=== PATIENT | female | born 1935 | race Caucasian/White ===

== ENCOUNTER 2016-08-21 11:19 | Emergency (ER) | payer MEDICARE, OTHER ==
[2016-08-21] MEDS ORDERED: METOCLOPRAMIDE 5 MG/ML 2 ML VIAL IVP STA (11:45)
[2016-08-21] MEDS ORDERED: SODIUM CHLORIDE 0.9% 1,000 ML IV STA (11:45)
[2016-08-21] MEDS ORDERED: SODIUM CHLORIDE 0.9% 500 ML IV STA (11:45)
[2016-08-21 11:46] VITALS: RESP 18
[2016-08-21] MEDS ORDERED: ENALAPRILAT 1.25 MG/ML 1 ML VIAL IVP STA (11:47)
[2016-08-21] MEDS ORDERED: ACETAMINOPHEN IV (For NPO) 1,000 MG in SALINE 1 100ML.BAG IVPB STA (11:49)
--- NOTE | 2016-08-21 11:53 | ED ---
General Adult HPI - General Chief complaint: Headache Stated complaint: headache Time Seen by Provider: 08/21/16 11:39 Source: patient, family, RN notes reviewed Mode of arrival: wheelchair Limitations: no limitations - History of Present Illness Initial comments: Patient is a pleasant 81-year-old female presenting to the emergency department complaining of headache. Onset of symptoms was in the middle of the night at some point. Patient did take some aspirin at that time. Patient states headache was gradual onset and progressed over several hours. Headache did become severe up to 10/10. Headache at this time is improved and is rated 6/ 10. Mild nausea. Mild photophobia. No history of chronic headaches. Discomfort felt like tightness wrapping around the head. No confusion. No weakness. No visual change. - Related Data Home Medications Medication Instructions Recorded Confirmed LORazepam [Ativan] 0.5 mg PO BID 01/10/14 08/21/16 Aspirin 325 mg PO DAILY PRN 08/21/16 08/21/16 Carvedilol [Coreg] 3.125 mg PO DAILY 08/21/16 08/21/16 Allergies Allergy/AdvReac Type Severity Reaction Status Date / Time Latex, Natural Rubber Allergy Unknown Verified 08/21/16 11:44 Review of Systems ROS Statement: Those systems with pertinent positive or pertinent negative responses have been documented in the HPI. ROS Other: All systems not noted in ROS Statement are negative. Constitutional: Denies: fever Eyes: Denies: eye pain, vision change ENT: Denies: ear pain Respiratory: Denies: cough Cardiovascular: Denies: chest pain Endocrine: Denies: fatigue Gastrointestinal: Denies: abdominal pain Genitourinary: Denies: dysuria Musculoskeletal: Denies: back pain Skin: Denies: rash Neurological: Reports: headache. Denies: weakness, confusion, vertigo Past Medical History Past Medical History: Hypertension History of Any Multi-Drug Resistant Organisms: None Reported Past Surgical History: Hysterectomy, Tubal Ligation Additional Past Surgical History / Comment(s): UTERINE CYST REMOVAL Past Anesthesia/Blood Transfusion Reactions: No Reported Reaction Past Psychological History: No Psychological Hx Reported Smoking Status: Never smoker Past Alcohol Use History: None Reported Past Drug Use History: None Reported - Past Family History Mother Family Medical History: Diabetes Mellitus General Exam Limitations: no limitations General appearance: alert, in no apparent distress Head exam: Present: atraumatic Eye exam: Present: normal appearance, PERRL, EOMI. Absent: nystagmus ENT exam: Present: normal oropharynx Neck exam: Present: normal inspection. Absent: tenderness Respiratory exam: Present: normal lung sounds bilaterally Cardiovascular Exam: Present: regular rate, normal rhythm GI/Abdominal exam: Present: soft. Absent: tenderness Extremities exam: Present: normal inspection. Absent: pedal edema, calf tenderness Neurological exam: Present: alert, CN II-XII intact. Absent: motor sensory deficit Expanded Speech: Present: fluid speech Cranial nerves: EOM's Intact: Normal, Facial Sensation: Normal Sensory exam: Upper Extremity Light Touch: Normal, Lower Extremity Light Touch: Normal Motor strength exam: RUE: 5, LUE: 5, RLE: 5, LLE: 5 Eye Response: (4) open spontaneously Motor Response: (6) obeys commands Verbal Response: (5) oriented Psychiatric exam: Present: normal affect, normal mood Skin exam: Absent: rash Course Vital Signs 08/21/16 08/21/16 08/21/16 11:21 11:44 13:02 Temperature 97.7 F Pulse Rate 72 72 55 L Respiratory 20 18 18 Rate Blood Pressure 207/93 211/100 188/87 O2 Sat by Pulse 98 95 98 Oximetry Medical Decision Making - Medical Decision Making Patient reexamined and symptom-free. Patient does have some discomfort with cough only. Patient and family updated on results and need for follow-up. Patient is comfortable with discharge home. - Lab Data Lab Results 08/21/16 Range/Units 11:50 ESR 21 H (0-20) mm/hr - Radiology Data Radiology results: image reviewed (Computed tomography scan of the brain shows no acute process) Disposition Clinical Impression: Cephalgia Disposition: HOME SELF-CARE Condition: Stable Instructions: Acute Headache (ED) Additional Instructions: Please follow-up this week with Dr. Ennis. Return for increased pain, weakness or confusion, speech problems, visual problems, worsening symptoms or other concerns. Referrals: Toribio Ennis MD [Primary Care Provider] - 1-2 days
--- NOTE | 2016-08-21 13:14 | CT ---
EXAMINATION TYPE: CT brain wo con DATE OF EXAM: 08/21/2016 1:02 PM COMPARISON: Prior head CT 25 February 2015 HISTORY: RODRIGUEZ CT DLP: 1040 mGycm Automated exposure control for dose reduction was used. FINDINGS: There is no acute intracranial hemorrhage, mass effect, or midline shift identified. The ventricles and sulci are within normal limits in size. Periventricular white matter shows patchy low attenuation as on prior exam. Cerebral vascular calcifications are present. 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 The globes are intact and the visualized sinuses are clear. IMPRESSION: No acute intracranial hemorrhage, mass effect, or midline shift is seen.
[2016-08-21 14:13] VITALS: BP 176/74; PULSE 60; TEMP 98.1
== END 2016-08-21 14:14 | disposition home or self-care (01) ==
LOC: EC 11:19
DX: R51 Headache (principal); R05 Cough; R11.0 Nausea; I10 Essential (primary) hypertension; Z79.899 Other long term (current) drug therapy; Z91.040 Latex allergy status
CPT/HCPCS: 36415; 85652; 70450; 99284; 96374; 96375 ×2; 96361 ×2; J2765; J0131

== ENCOUNTER 2018-01-29 15:26 | Emergency (ER) | payer MEDICARE, OTHER ==
[2018-01-29] MEDS ORDERED: LORazepam 1 MG TAB PO STA ×2 (15:45→18:25)
[2018-01-29] MEDS ORDERED: SODIUM CHLORIDE 0.9% 500 ML IV STA (15:46)
[2018-01-29] MEDS ORDERED: amLODIPine 5 MG TAB PO STA ×2 (15:47→17:55)
--- NOTE | 2018-01-29 15:54 | ED ---
General Adult HPI - General Chief complaint: Dizziness Stated complaint: Irregular Heartbeat Time Seen by Provider: 01/29/18 15:39 Source: patient, family, RN notes reviewed Mode of arrival: ambulatory Limitations: no limitations - History of Present Illness Initial comments: Patient is a pleasant 82-year-old female presenting to the emergency department following an abnormal episode that occurred at home. Patient admits to increasing twice a day and stress recently. Patient states she had a funny wave pass across her forehead. Patient states following this she felt like her heart was racing. He should states the entire episode lasted around 5 seconds. Patient denies ever having headache. Patient states she did not really feel dizzy. Patient denies ever having any chest discomfort. No history of similar symptoms previously. No syncope or Near syncope. No dyspnea. No weakness. No confusion. No speech problems. Patient remained symptom-free at this time. Incident happened several hours ago. - Related Data Home Medications Medication Instructions Recorded Confirmed Aspirin 325 mg PO DAILY PRN 08/21/16 01/29/18 Carvedilol [Coreg] 3.125 mg PO BID 08/21/16 01/29/18 Hydrochlorothiazide 12.5 mg PO DAILY PRN 01/29/18 01/29/18 Allergies Allergy/AdvReac Type Severity Reaction Status Date / Time Latex, Natural Rubber Allergy Unknown Verified 01/29/18 16:08 Review of Systems ROS Statement: Those systems with pertinent positive or pertinent negative responses have been documented in the HPI. ROS Other: All systems not noted in ROS Statement are negative. Constitutional: Denies: fever, chills Eyes: Denies: eye pain ENT: Denies: ear pain Respiratory: Denies: cough, dyspnea Cardiovascular: Reports: palpitations. Denies: chest pain Endocrine: Reports: fatigue Gastrointestinal: Denies: abdominal pain Genitourinary: Denies: dysuria Musculoskeletal: Denies: back pain Skin: Denies: rash Neurological: Denies: headache, weakness, paresthesias, confusion, vertigo Past Medical History Past Medical History: Hypertension History of Any Multi-Drug Resistant Organisms: None Reported Past Surgical History: Hysterectomy, Tubal Ligation Additional Past Surgical History / Comment(s): UTERINE CYST REMOVAL Past Anesthesia/Blood Transfusion Reactions: No Reported Reaction Past Psychological History: No Psychological Hx Reported Smoking Status: Never smoker Past Alcohol Use History: None Reported Past Drug Use History: None Reported - Past Family History Mother Family Medical History: Diabetes Mellitus General Exam Limitations: no limitations General appearance: alert, in no apparent distress Head exam: Present: atraumatic, normocephalic Eye exam: Present: normal appearance, PERRL, EOMI. Absent: nystagmus ENT exam: Present: normal oropharynx Neck exam: Present: normal inspection Respiratory exam: Present: normal lung sounds bilaterally. Absent: chest wall tenderness Cardiovascular Exam: Present: regular rate, normal rhythm Expanded Peripheral pulses: 2+: Radial (R), Radial (L), Dorsalis Pedis (R), Dorsalis Pedis (L) GI/Abdominal exam: Present: soft. Absent: tenderness Extremities exam: Present: normal inspection. Absent: pedal edema, calf tenderness Neurological exam: Present: alert, oriented X3, CN II-XII intact. Absent: motor sensory deficit Expanded Neurological exam: Present: protecting the airway Patient oriented to: Present: person, place, time Speech: Present: fluid speech Cranial nerves: EOM's Intact: Normal, Facial Sensation: Normal Sensory exam: Upper Extremity Light Touch: Normal, Lower Extremity Light Touch: Normal Motor strength exam: RUE: 5, LUE: 5, RLE: 5, LLE: 5 Eye Response: (4) open spontaneously Motor Response: (6) obeys commands Verbal Response: (5) oriented Psychiatric exam: Present: normal affect, normal mood Skin exam: Present: normal color Course Vital Signs 01/29/18 01/29/18 15:29 17:34 Temperature 98.0 F Pulse Rate 71 55 L Respiratory 20 16 Rate Blood Pressure 210/92 204/104 O2 Sat by Pulse 96 95 Oximetry EKG Findings - EKG Comments: EKG Findings:: Normal sinus rhythm 62. First-degree AV block with RI of 206. QRS 90. QT 410. QTc 416. Normal axis. LVH criteria. No acute ST change. Biphasic T waves laterally. Medical Decision Making - Medical Decision Making Patient reevaluated and resting comfortably in bed. Patient does remain symptom -free. Case was discussed with Dr. Ennis who is familiar with this patient and is okay with discharge. He is aware of blood pressure and will follow up with patient. Additional Norvasc is provided. - Lab Data Result diagrams: 01/29/18 16:42 01/29/18 16:42 Lab Results 01/29/18 01/29/18 01/29/18 Range/Units 16:42 16:42 16:42 WBC 7.2 (3.8-10.6) k/uL RBC 3.81 (3.80-5.40) m/uL Hgb 11.8 (11.4-16.0) gm/dL Hct 35.3 (34.0-46.0) % MCV 92.8 (80.0-100.0) fL MCH 30.9 (25.0-35.0) pg MCHC 33.3 (31.0-37.0) g/dL RDW 12.7 (11.5-15.5) % Plt Count 170 (150-450) k/uL Neutrophils % 62 % Lymphocytes % 28 % Monocytes % 6 % Eosinophils % 3 % Basophils % 1 % Neutrophils # 4.5 (1.3-7.7) k/uL Lymphocytes # 2.0 (1.0-4.8) k/uL Monocytes # 0.4 (0-1.0) k/uL Eosinophils # 0.2 (0-0.7) k/uL Basophils # 0.0 (0-0.2) k/uL PT 9.7 (9.0-12.0) sec INR 1.0 (<1.2) APTT 20.3 L (22.0-30.0) sec Sodium 144 (137-145) mmol/L Potassium 4.3 (3.5-5.1) mmol/L Chloride 109 H (98-107) mmol/L Carbon Dioxide 28 (22-30) mmol/L Anion Gap 7 mmol/L BUN 30 H (7-17) mg/dL Creatinine 1.17 H (0.52-1.04) mg/dL Est GFR (CKD-EPI)AfAm 50 (>60 ml/min/1.73 sqM) Est GFR (CKD-EPI)NonAf 44 (>60 ml/min/1.73 sqM) Glucose 119 H (74-99) mg/dL Calcium 9.4 (8.4-10.2) mg/dL Total Bilirubin 0.3 (0.2-1.3) mg/dL AST 18 (14-36) U/L ALT 15 (9-52) U/L Alkaline Phosphatase 63 (38-126) U/L Total Creatine Kinase (30-135) U/L CK-MB (CK-2) (0.0-2.4) ng/mL CK-MB (CK-2) Rel Index Troponin I (0.000-0.034) ng/mL Total Protein 7.2 (6.3-8.2) g/dL Albumin 4.0 (3.5-5.0) g/dL Urine Color Urine Appearance (Clear) Urine pH (5.0-8.0) Ur Specific [place] (1.001-1.035) Urine Protein (Negative) Urine Glucose (UA) (Negative) Urine Ketones (Negative) Urine Blood (Negative) Urine Nitrite (Negative) Urine Bilirubin (Negative) Urine Urobilinogen (<2.0) mg/dL Ur Leukocyte Esterase (Negative) Urine RBC (0-5) /hpf Urine WBC (0-5) /hpf Urine Mucus (None) /hpf 01/29/18 01/29/18 Range/Units 16:42 16:49 WBC (3.8-10.6) k/uL RBC (3.80-5.40) m/uL Hgb (11.4-16.0) gm/dL Hct (34.0-46.0) % MCV (80.0-100.0) fL MCH (25.0-35.0) pg MCHC (31.0-37.0) g/dL RDW (11.5-15.5) % Plt Count (150-450) k/uL Neutrophils % % Lymphocytes % % Monocytes % % Eosinophils % % Basophils % % Neutrophils # (1.3-7.7) k/uL Lymphocytes # (1.0-4.8) k/uL Monocytes # (0-1.0) k/uL Eosinophils # (0-0.7) k/uL Basophils # (0-0.2) k/uL PT (9.0-12.0) sec INR (<1.2) APTT (22.0-30.0) sec Sodium (137-145) mmol/L Potassium (3.5-5.1) mmol/L Chloride (98-107) mmol/L Carbon Dioxide (22-30) mmol/L Anion Gap mmol/L BUN (7-17) mg/dL Creatinine (0.52-1.04) mg/dL Est GFR (CKD-EPI)AfAm (>60 ml/min/1.73 sqM) Est GFR (CKD-EPI)NonAf (>60 ml/min/1.73 sqM) Glucose (74-99) mg/dL Calcium (8.4-10.2) mg/dL Total Bilirubin (0.2-1.3) mg/dL AST (14-36) U/L ALT (9-52) U/L Alkaline Phosphatase (38-126) U/L Total Creatine Kinase 77 (30-135) U/L CK-MB (CK-2) 1.5 (0.0-2.4) ng/mL CK-MB (CK-2) Rel Index 1.9 Troponin I <0.012 (0.000-0.034) ng/mL Total Protein (6.3-8.2) g/dL Albumin (3.5-5.0) g/dL Urine Color Light Yellow Urine Appearance Clear (Clear) Urine pH 6.5 (5.0-8.0) Ur Specific [place] 1.009 (1.001-1.035) Urine Protein Negative (Negative) Urine Glucose (UA) Negative (Negative) Urine Ketones Negative (Negative) Urine Blood Negative (Negative) Urine Nitrite Negative (Negative) Urine Bilirubin Negative (Negative) Urine Urobilinogen <2.0 (<2.0) mg/dL Ur Leukocyte Esterase Moderate H (Negative) Urine RBC 1 (0-5) /hpf Urine WBC 3 (0-5) /hpf Urine Mucus Rare H (None) /hpf - Radiology Data Radiology results: image reviewed (Chest x-ray shows no acute process) Disposition Clinical Impression: Hypertension Disposition: HOME SELF-CARE Condition: Stable Instructions: Dizziness (ED), Hypertension (ED) Additional Instructions: Please follow-up with primary care physician in the next couple days for recheck. Return for passing out, increased heart rate, chest pain, confusion, worsening or changing symptoms or other concerns. Is patient prescribed a controlled substance at d/c from ED?: No Referrals: Toribio Ennis MD [Primary Care Provider] - 1-2 days Time of Disposition: 17:57
[2018-01-29 17:04] LABS: Calcium 9.4 mg/dL (8.4-10.2); Potassium 4.3 mmol/L (3.5-5.1); Total Bilirubin 0.3 mg/dL (0.2-1.3); Total Protein 7.2 g/dL (6.3-8.2)
[2018-01-29 17:06] LABS: Appearance,Urine Clear (Clear); Bilirubin,Urine Negative (Negative); Blood,Urine Negative (Negative); Color,Urine Light Yellow; Glucose,Urine (UA) Negative (Negative); Ketones,Urine Negative (Negative); Leukocyte Esterase,Urine Moderate (Negative); Mucus,Urine Rare /hpf; Nitrite,Urine Negative (Negative); PH, Urine 6.5 (5.0-8.0); Protein,Urine Negative (Negative); RBC,Urine 1 /hpf (0-5); Specific Gravity,Urine 1.009 (1.001-1.035); Urobilinogen,Urine <2.0 mg/dL (<2.0); WBC,Urine 3 /hpf (0-5)
[2018-01-29 17:06] LABS: Creatine Kinase 77 U/L (30-135)
[2018-01-29 17:08] LABS: Basophils % (A) 1 %; Eosinophils # (A) 0.2 k/uL (0-0.7); Eosinophils % (A) 3 %; HCT 35.3 % (34.0-46.0); HGB 11.8 gm/dL (11.4-16.0); Lymphocytes % (A) 28 %; MCH 30.9 pg (25.0-35.0); MCHC 33.3 g/dL (31.0-37.0); MCV 92.8 fL (80.0-100.0); Monocytes # (A) 0.4 k/uL (0-1.0); Monocytes % (A) 6 %; Neutrophils # (A) 4.5 k/uL (1.3-7.7); Neutrophils % (A) 62 %; Platelet Count 170 k/uL (150-450); RBC 3.81 m/uL (3.80-5.40); RDW 12.7 % (11.5-15.5); WBC 7.2 k/uL (3.8-10.6)
[2018-01-29 17:12] LABS: Prothrombin Time 9.7 sec (9.0-12.0)
[2018-01-29 17:19] LABS: Creatine Kinase MB 1.5 ng/mL (0.0-2.4); Partial Thromboplastin Time 20.3 sec (22.0-30.0); Troponin I <0.012 ng/mL (0.000-0.034)
--- NOTE | 2018-01-29 17:35 | XR ---
EXAMINATION TYPE: XR chest 2V DATE OF EXAM: 01/29/2018 COMPARISON: 01/10/2014 HISTORY: Dysrhythmia TECHNIQUE: Frontal and lateral views of the chest are obtained. FINDINGS: Heart and mediastinum are normal. Costophrenic angles are clear. There is no heart failure . There is some pleural thickening at the lung apices. There are chest leads. IMPRESSION: Pleural and pulmonary scarring at the lung apices unchanged. No active cardiopulmonary d isease.
[2018-01-29 19:27] VITALS: RESP 17
[2018-01-29] MEDS ORDERED: cloNIDine HCL 0.1 MG TAB PO STA (19:32)
[2018-01-29 20:38] VITALS: BP 182/82; PULSE 62
[2018-01-29 20:46] VITALS: TEMP 98.3
== END 2018-01-29 20:43 | disposition home or self-care (01) ==
LOC: EC 15:26
DX: I10 Essential (primary) hypertension (principal); Z91.040 Latex allergy status; Z79.899 Other long term (current) drug therapy
CPT/HCPCS: 36415; 71046; 80053; 81001; 82550; 82553; 84484; 85025; 85610; 85730; 93005; 96360; 99284

== ENCOUNTER 2018-05-10 09:11 | Inpatient (IN) | payer MEDICARE, OTHER ==
[2018-05-10 09:59] LABS: Basophils % (A) 1 %; Eosinophils # (A) 0.2 k/uL (0-0.7); Eosinophils % (A) 4 %; HCT 34.4 % (34.0-46.0); HGB 11.2 gm/dL (11.4-16.0); Lymphocytes # (A) 1.4 k/uL (1.0-4.8); Lymphocytes % (A) 28 %; MCH 30.7 pg (25.0-35.0); MCHC 32.4 g/dL (31.0-37.0); MCV 94.7 fL (80.0-100.0); Mean Platelet Volume 7.1; Monocytes # (A) 0.2 k/uL (0-1.0); Monocytes % (A) 5 %; Neutrophils % (A) 60 %; Platelet Count 169 k/uL (150-450); RBC 3.63 m/uL (3.80-5.40); RDW 12.9 % (11.5-15.5)
[2018-05-10 10:09] LABS: Albumin 3.5 g/dL (3.5-5.0); Potassium 4.5 mmol/L (3.5-5.1); Total Bilirubin 0.4 mg/dL (0.2-1.3); Total Protein 6.3 g/dL (6.3-8.2)
[2018-05-10 10:10] LABS: INR 0.9 (<1.2); Partial Thromboplastin Time 23.2 sec (22.0-30.0)
--- NOTE | 2018-05-10 10:12 | ED ---
General Adult HPI - General Chief complaint: Neuro Symptoms/Deficit Stated complaint: Neuro Symptoms Time Seen by Provider: 05/10/18 09:15 Source: patient, RN notes reviewed, old records reviewed Mode of arrival: EMS Limitations: no limitations - History of Present Illness Initial comments: 82-year-old female history of hypertension presents with tongue numbness and left arm numbness and weakness. Symptoms began at 8:30 this morning. She presents to emergency department at approximately 1915. She was transported by EMS. Symptoms had resolved at the time of presentation. Patient had no complaints. No significant headache, no vision changes, no focal numbness or weakness. Patient states she feels somewhat generally weak. No chest pain or dyspnea. No palpitations. No abdominal pain nausea or vomiting. No fever or chills. Patient did take an aspirin prior to arrival. She has no history of TIA or CVA. No history of arrhythmia. No history of CAD or CO. - Related Data Home Medications Medication Instructions Recorded Confirmed Carvedilol [Coreg] 3.125 mg PO BID 08/21/16 05/10/18 Vitamin B Complex 1 cap PO DAILY 05/10/18 05/10/18 Allergies Allergy/AdvReac Type Severity Reaction Status Date / Time Latex, Natural Rubber Allergy Unknown Verified 05/10/18 10:06 Review of Systems ROS Statement: Those systems with pertinent positive or pertinent negative responses have been documented in the HPI. ROS Other: All systems not noted in ROS Statement are negative. Past Medical History Past Medical History: Hypertension History of Any Multi-Drug Resistant Organisms: None Reported Past Surgical History: Hysterectomy, Tubal Ligation Additional Past Surgical History / Comment(s): UTERINE CYST REMOVAL Past Anesthesia/Blood Transfusion Reactions: No Reported Reaction Past Psychological History: No Psychological Hx Reported Smoking Status: Never smoker Past Alcohol Use History: None Reported Past Drug Use History: None Reported - Past Family History Mother Family Medical History: Diabetes Mellitus General Exam Limitations: no limitations General appearance: alert, in no apparent distress Head exam: Present: atraumatic, normocephalic Eye exam: Present: normal appearance, PERRL, EOMI ENT exam: Present: normal exam Neck exam: Present: normal inspection. Absent: tenderness, meningismus Respiratory exam: Present: normal lung sounds bilaterally. Absent: respiratory distress, wheezes Cardiovascular Exam: Present: normal rhythm, bradycardia GI/Abdominal exam: Present: soft. Absent: distended Extremities exam: Present: normal inspection, normal capillary refill. Absent: pedal edema, calf tenderness Neurological exam: Present: alert, oriented X3, CN II-XII intact, other (NIH 0) . Absent: motor sensory deficit Psychiatric exam: Present: normal affect, normal mood Skin exam: Present: warm, dry, intact. Absent: cyanosis, diaphoretic Course Vital Signs 05/10/18 05/10/18 09:40 12:05 Temperature 98.1 F Pulse Rate 57 L 52 L Respiratory 18 16 Rate Blood Pressure 217/91 182/85 O2 Sat by Pulse 98 98 Oximetry Medical Decision Making - Medical Decision Making 82-year-old female presenting with symptoms concerning for TIA. Patient had left arm numbness and mild weakness this was resolved prior to arrival. Patient is neurologically intact time my evaluation. She is hypertensive with otherwise stable vitals and well-appearing. Head CT is obtained, negative for intracranial hemorrhage or mass effect. Patient does receive CT angiography in the emergency department which is negative for any stenosis or occlusion. 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 No acute findings. Patient has normal CBC and normal CMP. She remains neurologically intact with nonfocal exam and NIH is 0 out of the emergency department. She took aspirin prior to arrival. She will be admitted for further stroke workup. Case is discussed with Dr. Ennis who is able to evaluate the patient in the emergency department. - Lab Data Result diagrams: 05/10/18 09:50 05/10/18 09:50 Lab Results 05/10/18 05/10/18 05/10/18 Range/Units 09:50 09:50 09:50 WBC 5.0 (3.8-10.6) k/uL RBC 3.63 L (3.80-5.40) m/uL Hgb 11.2 L (11.4-16.0) gm/dL Hct 34.4 (34.0-46.0) % MCV 94.7 (80.0-100.0) fL MCH 30.7 (25.0-35.0) pg MCHC 32.4 (31.0-37.0) g/dL RDW 12.9 (11.5-15.5) % Plt Count 169 (150-450) k/uL Neutrophils % 60 % Lymphocytes % 28 % Monocytes % 5 % Eosinophils % 4 % Basophils % 1 % Neutrophils # 3.0 (1.3-7.7) k/uL Lymphocytes # 1.4 (1.0-4.8) k/uL Monocytes # 0.2 (0-1.0) k/uL Eosinophils # 0.2 (0-0.7) k/uL Basophils # 0.0 (0-0.2) k/uL PT (9.0-12.0) sec INR (<1.2) APTT (22.0-30.0) sec Sodium 141 (137-145) mmol/L Potassium 4.5 (3.5-5.1) mmol/L Chloride 108 H (98-107) mmol/L Carbon Dioxide 28 (22-30) mmol/L Anion Gap 5 mmol/L BUN 16 (7-17) mg/dL Creatinine 0.96 (0.52-1.04) mg/dL Est GFR (CKD-EPI)AfAm 64 (>60 ml/min/1.73 sqM) Est GFR (CKD-EPI)NonAf 55 (>60 ml/min/1.73 sqM) Glucose 129 H (74-99) mg/dL Calcium 9.0 (8.4-10.2) mg/dL Total Bilirubin 0.4 (0.2-1.3) mg/dL AST 14 (14-36) U/L ALT 18 (9-52) U/L Alkaline Phosphatase 62 (38-126) U/L Total Creatine Kinase 74 (30-135) U/L CK-MB (CK-2) 1.0 (0.0-2.4) ng/mL CK-MB (CK-2) Rel Index 1.4 Troponin I <0.012 (0.000-0.034) ng/mL Total Protein 6.3 (6.3-8.2) g/dL Albumin 3.5 (3.5-5.0) g/dL 05/10/18 Range/Units 09:50 WBC (3.8-10.6) k/uL RBC (3.80-5.40) m/uL Hgb (11.4-16.0) gm/dL Hct (34.0-46.0) % MCV (80.0-100.0) fL MCH (25.0-35.0) pg MCHC (31.0-37.0) g/dL RDW (11.5-15.5) % Plt Count (150-450) k/uL Neutrophils % % Lymphocytes % % Monocytes % % Eosinophils % % Basophils % % Neutrophils # (1.3-7.7) k/uL Lymphocytes # (1.0-4.8) k/uL Monocytes # (0-1.0) k/uL Eosinophils # (0-0.7) k/uL Basophils # (0-0.2) k/uL PT 10.0 (9.0-12.0) sec INR 0.9 (<1.2) APTT 23.2 (22.0-30.0) sec Sodium (137-145) mmol/L Potassium (3.5-5.1) mmol/L Chloride (98-107) mmol/L Carbon Dioxide (22-30) mmol/L Anion Gap mmol/L BUN (7-17) mg/dL Creatinine (0.52-1.04) mg/dL Est GFR (CKD-EPI)AfAm (>60 ml/min/1.73 sqM) Est GFR (CKD-EPI)NonAf (>60 ml/min/1.73 sqM) Glucose (74-99) mg/dL Calcium (8.4-10.2) mg/dL Total Bilirubin (0.2-1.3) mg/dL AST (14-36) U/L ALT (9-52) U/L Alkaline Phosphatase (38-126) U/L Total Creatine Kinase (30-135) U/L CK-MB (CK-2) (0.0-2.4) ng/mL CK-MB (CK-2) Rel Index Troponin I (0.000-0.034) ng/mL Total Protein (6.3-8.2) g/dL Albumin (3.5-5.0) g/dL Disposition Clinical Impression: Transient cerebral ischemia Disposition: ADMITTED IP TO THIS [facility] Condition: Stable Is patient prescribed a controlled substance at d/c from ED?: No Referrals: Toribio Ennis MD [Primary Care Provider] - 1-2 days Decision to Admit Reason: Admit from EC Decision Date: 05/10/18 Decision Time: 12:37
[2018-05-10 10:23] LABS: Creatine Kinase 74 U/L (30-135)
[2018-05-10 10:36] LABS: Troponin I <0.012 ng/mL (0.000-0.034)
--- NOTE | 2018-05-10 10:58 | CT ---
EXAMINATION TYPE: CT brain wo con DATE OF EXAM: 05/10/2018 COMPARISON: Previous study dated 08/21/2016 HISTORY: Neuro deficits CT DLP: 1095.4 mGycm Automated exposure control for dose reduction was used. FINDINGS: There are mild changes of sulcal prominence and ventriculomegaly, compatible with atrophic change. Th ere is diffuse periventricular white matter lucency, compatible small vessel ischemic change. There i s no acute focal lesion, mass effect or midline shift identified. I do not see evidence of intracrani al blood. Visualized portions of the paranasal sinuses and mastoids are clear. The bony calvarium is intact. IMPRESSION: 1. NO ACUTE INTRACRANIAL ABNORMALITY. 2. MILD DEGENERATIVE CHANGE.
--- NOTE | 2018-05-10 10:59 | XR ---
EXAMINATION TYPE: XR chest 2V DATE OF EXAM: 05/10/2018 HISTORY: altered mental status. REFERENCE: Previous study dated 01/29/2018. FINDINGS: The lungs are clear. Pleural space are clear. Heart size is upper limits of normal. IMPRESSION: NO ACUTE INTRATHORACIC ABNORMALITY.
[2018-05-10] MEDS ORDERED: hydrALAZINE HCL 20 MG/ML 1 ML VIAL IVP STA (11:31)
--- NOTE | 2018-05-10 12:21 | CT ---
EXAMINATION TYPE: CT angio head neck DATE OF EXAM: 05/10/2018 HISTORY: Numbness in tongue and arms COMPARISON: None. CT DLP: 292.1 mGycm. Automated Exposure Control for Dose Reduction was Utilized. TECHNIQUE: CTA scan of the neck is performed with IV Contrast, patient injected with 65 mL of Isovue 370, axial images are obtained, coronal and sagittal reformatted images are reviewed. Three-D recons tructed images are created on an independent workstation and reviewed. FINDINGS: There is apical scarring present bilaterally. There is dependent atelectasis within the fercho gs. There is aneurysmal dilatation of the proximal aortic arch which measures 3.2 cm. The remainder the v isualized aorta is unremarkable. There is a grade 1 spondylolisthesis of C4 on C5. Vertebral body hei ght and alignment are otherwise maintained. There is diffuse degenerative disc disease with relative sparing of C2-3. Atlantoaxial relationships are normal. No definite protrusion is seen. There is face t arthropathy on the right at C2-3 and on the left at C3-4. Visualized portions of the paranasal sinuses and mastoids are clear. The thyroid gland enhances homogeneously. Prevertebral soft tissues appear normal. There is a normal origin of the great vessels. The right vertebral artery is dominant. There is mild atheromatous calcification at the right carotid bulb. There is no significant stenosis in either carotid system. CTA of [place] demonstrates normal arborization of both middle cerebral arteries. Both a nterior cerebral arteries are patent. The posterior circulation is unremarkable. I see no sizable ane urysm. IMPRESSION: 1. NO SIGNIFICANT STENOSIS IN EITHER CAROTID SYSTEM. 2. NORMAL CTA OF THE [place]. 3. DEGENERATIVE CHANGES WITHIN THE SPINE. 4. 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
[2018-05-10] MEDS ORDERED: amLODIPine 5 MG TAB PO STA (13:37)
[2018-05-10 14:10] VITALS: BMI 21.7
--- NOTE | 2018-05-10 15:38 | US ---
EXAMINATION TYPE: US carotid duplex BILAT DATE OF EXAM: 05/10/2018 COMPARISON: CT 2018, US 2013 CLINICAL HISTORY: Numbness. EXAM MEASUREMENTS: RIGHT: Peak Systolic Velocity (PSV) cm/sec ----- Right CCA: 51.1 ----- Right ICA: 90.2 ----- Right ECA: 79.1 ICA/CCA ratio: 1.8 RIGHT: End Diastole cm/sec ----- Right CCA: 11.0 ----- Right ICA: 16.7 ----- Right ECA: 5.6 LEFT: Peak Systolic Velocity (PSV) cm/sec ----- Left CCA: 68.6 ----- Left ICA: 124.0 ----- Left ECA: 64.2 ICA/CCA ratio: 1.8 LEFT: End Diastole cm/sec ----- Left CCA: 18.0 ----- Left ICA: 35.0 ----- Left ECA: 5.7 VERTEBRALS (direction of flow): Right Vertebral: Antegrade Left Vertebral: Antegrade Rhythm: Normal IMPRESSION: No hemodynamically significant bilateral carotid arterial narrowing.
[2018-05-10] MEDS ORDERED: hydrALAZINE HCL 25 MG TAB PO STA (17:01)
[2018-05-10] MEDS ORDERED: CARVEDILOL 6.25 MG TAB PO SCH (17:30)
--- NOTE | 2018-05-10 17:42 | HP ---
HISTORY AND PHYSICAL DATE OF ADMISSION: 05/10/2018 CHIEF COMPLAINT: Numbness of tongue. HISTORY OF PRESENT ILLNESS: This elderly female, 82 years of age, presents with a complaint of having the tip of her tongue feeling numb and then subsequently has started having numbness of her medial 3 fingers on the left hand and then extending up to the hand and lower arm. The patient had no motor symptoms, no associated headaches, dizziness, double vision, blurred vision, any speech disturbance or any unsteadiness. The patient's symptoms had lasted about half an hour when she decided to come to the emergency room. She has no further symptoms in the ER. The patient says she got up this morning, watched some TV and then had breakfast, went out and shoveled a little snow around the front porch. Then when she came in, after a while she started having these symptoms. She sat around for a little while, then decided to take an aspirin, as she started having some symptoms in the hands. She took an aspirin and had taken her blood pressure medication earlier. She takes carvedilol 6.25 mg b.i.d. She is supposed to be on hydrochlorothiazide 12.5 daily; she does not take it on a regular basis. She elects to take it upon her judgments. The patient has been recommended to take it on a daily basis to help blood pressure. As mentioned above, the patient had no other associated symptoms. She does have a history of hypertension. No history of any lung disease or liver disease. No history of any cardiac disease. PAST MEDICAL HISTORY: Significant for: 1. History of hypertension, long-standing. 2. History of a TIA back in 2013. 3. Back in January of 2018 she had come to the emergency room for symptoms of tunnel vision. Again findings at that time were clinically none. PAST SURGICAL HISTORY: No major surgical history. PERSONAL HISTORY: Never a smoker. Alcohol none. ALLERGIES: Sensitive to [employer], which cause her a cough. LATEX sensitive. MEDICATIONS: Medications at present include: 1. Coreg 3.125 mg 2 tablets b.i.d. 2. Ativan p.r.n. 3. Hydrochlorothiazide 12.5 mg daily. 4. Aspirin 81 mg daily. She does not take her aspirin and hydrochlorothiazide on a regular basis. SOCIAL HISTORY: Patient is , lives with her spouse. The patient's spouse has a history of multiple medical ailments. The patient has a son who lives with her. He has residual left hemiparesis from childhood. FAMILY MEDICAL HISTORY: As mentioned above, son with left hemiparesis. She has 2 daughters in good health. She had one son who at the age of 40 with myocardial infarction. REVIEW OF SYSTEMS: NEURO: Denies any headaches, dizziness. No double vision or blurred vision. No symptoms of syncope, seizures. Present symptoms of numbness at the tip of the tongue and left hand, which are resolved. No motor symptoms. PSYCH: No anxiety, depression. CARDIAC: No chest pain, angina, palpitation. RESPIRATORY: Denies shortness of breath, cough, hemoptysis. GI: No nausea, vomiting, abdominal pain, diarrhea, constipation, hematochezia, melena. : Denies symptoms of dysuria, hematuria, urgency, frequency. EXTREMITIES: Denies pain, edema. Does have muscle cramps. CONSTITUTIONAL: No fever or chills. HEMATOLOGICAL: No anemia or bleeding disorder. ENDOCRINE: No history of diabetes mellitus, hypothyroidism. SKIN: No rashes. 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 PHYSICAL EXAMINATION: Pleasant female, at present in no distress. She is awake, alert, calm. Vital signs revealed blood pressures running in the 219/90 range, pulse 50, respirations of 16, afebrile. HEENT: Normocephalic. Neck is supple. Pupils reactive. Nostrils clear. Oral cavity is moist. Pharynx is clear. Tongue central. Ears reveal no drainage. NECK: No JVD, carotid bruits or thyromegaly. Chest examination is clear to auscultation and percussion CARDIAC: Normal S1, S2 with no gallops, murmurs or rubs. Regular rhythm. ABDOMEN: Soft. No palpable masses. Bowel sounds normal. No organomegaly. No abdominal bruits. Extremities reveal no edema. Good pulses, both upper and lower extremities. Neurologically, awake, alert, oriented x3. Cranial nerves 2-12 are within normal limits. Has equal hand grasp bilaterally. No focal neurological sign. She has equal strength in both lower extremities. Plantars are bilateral, equivocal. Deep tendon reflexes are symmetrical. Gait is not examined. However, patient has well-coordinated movements of both hands. LABORATORY ASSESSMENT: CT scan of the brain which did not reveal any acute infarcts or bleed. CTA did not reveal any intracranial circulatory significant changes or infarcts. There is some dilatation of the aortic arch. EKG reveals normal sinus rhythm, possible LV changes. Electrolytes, BUN and creatinine are within normal limits. ASSESSMENT: 1. Transient ischemic attack. 2. Labile hypertension. PLAN: The patient is admitted to the hospital, started on aspirin. She was given hydralazine in the emergency room. We will start the patient on Norvasc. Continue Coreg and hydrochlorothiazide. The patient's condition was discussed with the patient and spouse. Prognosis remains guarded. Will get an ultrasound of the carotid arteries. She may require further evaluation regarding the aorta. MMODL / IJN: [id number] /
[2018-05-10 20:04] LABS: Glucose,Whole Blood 124 mg/dL (75-99)
[2018-05-10] MEDS: IBUPROFEN 400 MG TAB PO PRN (20:34)
--- NOTE | 2018-05-10 22:48 | P.PN ---
Subjective Progress Note Date: 05/10/18 Principal diagnosis: TIA This 82-year-old female was admitted to the hospital this morning with symptoms suggestive of a TIA. She had no focal neurological signs. EKG had shown sinus bradycardia with rates of 50s. Blood pressure markedly elevated and 200s. The patient during the day time had received 10 mg of hydralazine this morning and subsequently Norvasc 5 mg and since the blood pressure still in the 190s had received a dose of hydralazine. This evening and about 2 shifts change 7:38 PM the oncoming nurse had just evaluated her when she was fine and a few minutes later they noted the patient suddenly became almost unresponsive and bradycardic with rate of 30-32 and on telemetry noted to have a junctional bradycardia and subsequently picked up to sinus bradycardia. The patient's blood pressure was recorded as 106/55 as her heart rate came up to 69. The pulse ox was 95%. I's up to see the patient as she is awake alert oriented 3 she has no focal neurological signs or symptoms she is not complaining of any particular chest pain palpitations shortness of breath. She does have a neck pain in the back which is worsening with movements. She has had this pain for more than a month. 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 Physical examination reveals stable vital signs at present, lungs clear to auscultation percussion cardiac normal S1-S2 no gallops murmurs abdomen is softer peripheral masses pulses normal no organomegaly no tenderness extremities no edema no tenderness skin nice and warm. Neurologically no focal cranial nerve deficit equal strength bilaterally plantars are downgoing bilaterally. Assessment 1. Syncope 2. Severe bradycardia 3. Junctional bradycardia 4. TIA 5. Hypertension. Plan continue present medical management. We'll obtain an echocardiogram thyroid function the morning have cardiology see the patient. Objective - Vital Signs Vital signs: Vital Signs Temp 97.2 F L 05/10/18 20:00 Pulse 69 05/10/18 20:00 Resp 18 05/10/18 20:00 BP 106/55 05/10/18 20:00 Pulse Ox 95 05/10/18 20:00 Intake & Output 05/10/18 05/10/18 05/11/18 06:59 18:59 06:59 Intake Total 236 10 Balance 236 10 Weight 54 kg Intake: IV 10 0.9% NS FLUSH 10 Oral 236 - Labs CBC & Chem 7: 05/10/18 09:50 05/10/18 09:50 Labs: Abnormal Lab Results - Last 24 Hours (Table) 05/10/18 05/10/18 05/10/18 Range/Units 09:50 09:50 19:43 RBC 3.63 L (3.80-5.40) m/uL Hgb 11.2 L (11.4-16.0) gm/dL Chloride 108 H (98-107) mmol/L Glucose 129 H (74-99) mg/dL POC Glucose (mg/dL) 124 H (75-99) mg/dL
[2018-05-11 07:10] LABS: HCT 36.5 % (34.0-46.0); MCH 31.3 pg (25.0-35.0); MCHC 32.9 g/dL (31.0-37.0); MCV 95.2 fL (80.0-100.0); Mean Platelet Volume 7.8; Platelet Count 173 k/uL (150-450); RBC 3.84 m/uL (3.80-5.40); RDW 13.1 % (11.5-15.5); WBC 6.1 k/uL (3.8-10.6)
[2018-05-11 07:26] LABS: Calcium 9.5 mg/dL (8.4-10.2); Potassium 4.2 mmol/L (3.5-5.1)
[2018-05-11] MEDS: ASPIRIN 325 MG TAB PO SCH (08:28)
[2018-05-11] MEDS: IBUPROFEN 400 MG TAB PO PRN ×2 (08:28→18:16)
[2018-05-11] MEDS ORDERED: hydrALAZINE HCL 10 MG TAB PO SCH (10:45)
--- NOTE | 2018-05-11 11:14 | P.PN ---
Subjective Progress Note Date: 05/11/18 Principal diagnosis: TIA This 82-year-old female was admitted to the hospital with symptoms suggestive of a TIA. A CAT scan of the brain, CTA, carotid duplex studies were all negative. The patient did have an episode of severe bradycardia while on telemetry. No cardiopulmonary resuscitation was done though code blue was called. Patient has been on coreg at home. This was discontinued. We will start her on hydralazine to help control blood pressure. Since her blood pressures better control we'll also place her on subcu heparin for DVT prophylaxis. Patient should be ambulating. She has no symptoms today. She denies any headaches TIA symptoms equal hand grasp bilaterally and feet. Gait is steady. REVIEW OF SYSTEMS: Neuro: Denies any headaches dizziness. Psych: Denies anxiety depression feels oriented. Cardiac: Denies chest pain and angina palpitations. Respiratory: Denies shortness of breath cough. GI: Denies nausea vomiting or abdominal pain. No diarrhea or constipation, no bowel movement yet. : Denies dysuria hematuria. Extremities: Denies pain. No edema. Skin: Intact. Constitutional: No fever, chills. Neck: Chronic pain with no radicular symptoms Objective - Vital Signs Vital signs: Vital Signs Temp 98 F 05/11/18 08:00 Pulse 60 05/11/18 08:00 Resp 16 05/11/18 08:00 BP 134/63 05/11/18 08:00 Pulse Ox 96 05/11/18 08:00 Intake & Output 05/10/18 05/11/18 05/11/18 18:59 06:59 18:59 Intake Total 236 20 Balance 236 20 Weight 54 kg 45 kg Intake: IV 20 0.9% NS FLUSH 20 Oral 236 PHYSICAL EXAMINATION: Cooperative, at present in no acute distress. HEENT: [Neck supple. No JVD.] Chest: [Clear to auscultation][ percussion.] Cardiac: [Normal S1-S2] [no gallops] [no murmur ]. Abdomen:[ Soft ][bowel sounds present.] Extremities: [No edema] [no tenderness ] Neurologically: [Awake, alert, oriented with well-coordinated movements. Equal strength bilaterally no facial asymmetry and normal ocular movements. No dysphagia. Gait is steady] - Labs CBC & Chem 7: 05/11/18 06:37 05/11/18 06:37 Labs: Abnormal Lab Results - Last 24 Hours (Table) 05/10/18 05/11/18 Range/Units 19:43 06:37 Chloride 108 H (98-107) mmol/L BUN 21 H (7-17) mg/dL POC Glucose (mg/dL) 124 H (75-99) mg/dL LDL Cholesterol, Calc 110 H (0-99) mg/dL Assessment and Plan Assessment: ASSESSMENT: 1. TIA. 2. Symptomatic bradycardia. 3. Accelerated hypertension. PLAN: Continue present medical regimen. Patient's coreg has been discontinued we'll keep her on hydralazine.. Cardiology to evaluate. TIA symptoms are resolved yesterday no recurrence. The patient ambulated...
--- NOTE | 2018-05-11 12:20 | P.CRDCN ---
History of Present Illness Consult date: 05/11/18 History of present illness: This is a pleasant 80-year-old female patient with a past medical history significant for hypertension as well as history of TIA was admitted to the hospital with symptoms suggestive of TIA again. The patient was in her usual state of health until a few days ago when she suddenly started experiencing numbness involving the right side of the tongue as well as left arm. Her symptoms has resolved completely. The patient was diagnosed was TIA. She underwent a brain computed tomography scan, CTA, and also carotid to plexus study, and everything came in to be unremarkable. We get involved in the care of the patient because during her hospitalization she did have an episode of bradycardia. I did a few the telemetry strip which indicate likely what it seems to be profound bradycardia with heart rate in the 30s. The patient was unresponsive during that episode. Please note that the patient was receiving Coreg and that was stopped earlier today. Currently she is not on any AV opal adriane agents to control her blood pressure. The patient does not have any prior cardiac history and never seen any cold roller in the past. Past Medical History Past Medical History: Hypertension History of Any Multi-Drug Resistant Organisms: None Reported Past Surgical History: Hysterectomy, Tubal Ligation Additional Past Surgical History / Comment(s): UTERINE CYST REMOVAL Past Anesthesia/Blood Transfusion Reactions: No Reported Reaction Past Psychological History: No Psychological Hx Reported Smoking Status: Never smoker Past Alcohol Use History: None Reported Past Drug Use History: None Reported - Past Family History Mother Family Medical History: Diabetes Mellitus Medications and Allergies Home Medications Medication Instructions Recorded Confirmed Type Carvedilol [Coreg] 3.125 mg PO BID 08/21/16 05/10/18 History Vitamin B Complex 1 cap PO DAILY 05/10/18 05/10/18 History Allergies Allergy/AdvReac Type Severity Reaction Status Date / Time Latex, Natural Rubber Allergy Unknown Verified 05/10/18 10:06 Physical Exam Vitals: Vital Signs Temp Pulse Pulse Resp BP BP BP 05/11/18 08:00 98 F 60 16 134/63 05/11/18 03:50 97.6 F 58 L 16 174/86 185/91 05/11/18 01:36 57 L 16 166/76 173/82 05/10/18 23:43 97.9 F 69 14 170/78 191/93 05/10/18 20:00 97.2 F L 69 18 106/55 05/10/18 19:40 30 L 6 L 05/10/18 18:41 136/67 05/10/18 15:34 97.1 F L 71 18 189/82 05/10/18 14:00 97.1 F L 61 18 209/98 05/10/18 13:25 98.7 F 63 18 194/91 Pulse Ox 05/11/18 08:00 96 05/11/18 03:50 98 05/11/18 01:36 05/10/18 23:43 96 05/10/18 20:00 95 05/10/18 19:40 05/10/18 18:41 05/10/18 15:34 96 05/10/18 14:00 97 05/10/18 13:25 98 Intake and Output 05/10/18 05/11/18 05/11/18 22:59 06:59 14:59 Intake Total 10 10 Balance 10 10 Intake: IV 10 10 0.9% NS FLUSH 10 10 Other: Weight 45 kg - Constitutional General appearance: no acute distress - Respiratory Respiratory: bilateral: CTA - Cardiovascular Rhythm: regular Heart sounds: normal: S1, S2 Results 05/11/18 06:37 05/11/18 06:37 Lipids 05/11/18 Range/Units 06:37 Triglycerides 52 (<150) mg/dL Cholesterol 176 (<200) mg/dL HDL Cholesterol 56 (40-60) mg/dL CBC 05/11/18 Range/Units 06:37 WBC 6.1 (3.8-10.6) k/uL RBC 3.84 (3.80-5.40) m/uL Hgb 12.0 (11.4-16.0) gm/dL Hct 36.5 (34.0-46.0) % Plt Count 173 (150-450) k/uL Comprehensive Metabolic Panel 05/11/18 Range/Units 06:37 Sodium 143 (137-145) mmol/L Potassium 4.2 (3.5-5.1) mmol/L Chloride 108 H (98-107) mmol/L Carbon Dioxide 30 (22-30) mmol/L BUN 21 H (7-17) mg/dL Creatinine 1.00 (0.52-1.04) mg/dL Glucose 87 (74-99) mg/dL Calcium 9.5 (8.4-10.2) mg/dL Current Medications Generic Name Dose Route Start Last Admin Trade Name Freq PRN Reason Stop Dose Admin Aspirin 325 mg 05/11/18 09:00 05/11/18 08:28 Aspirin PO 325 mg DAILY GER Administration Heparin Sodium (Porcine) 5,000 unit 05/11/18 21:00 Heparin SQ Q12HR GER Hydralazine HCl 10 mg 05/11/18 10:45 05/11/18 11:53 Apresoline PO 10 mg BID GER Administration Ibuprofen 400 mg 05/10/18 20:04 05/11/18 08:28 Motrin PO 400 mg Q4HR PRN Administration Mild to Moderate Pain Intake and Output 05/10/18 05/11/18 05/11/18 22:59 06:59 14:59 Intake Total 10 10 Balance 10 10 Intake: IV 10 10 0.9% NS FLUSH 10 10 Other: Weight 45 kg 05/11/18 06:37 05/11/18 06:37 Assessment and Plan Assessment: Assessment #1 an episode of TIA which has resolved #2 profound bradycardia, sinus bradycardia #3 hypertension, long-standing history #4 history of recurrent TIA Plan #1 the Coreg was stopped. #2 avoid any AV opal adriane agents #3 rule out thyroid disorder #4 monitor the heart rate for additional 24 hours #5 obtain an echocardiogram was Doppler #6 follow up with the patient
[2018-05-11] MEDS ORDERED: hydrALAZINE HCL 25 MG TAB PO STA (18:30)
[2018-05-11] MEDS ORDERED: HYDROCHLOROTHIAZIDE 12.5 MG CAP PO SCH (20:45)
[2018-05-11] MEDS ORDERED: hydrALAZINE HCL 25 MG TAB PO SCH (21:00)
[2018-05-11] MEDS: HEPARIN SODIUM,PORCINE 5,000 UNIT/ML 1 ML VIAL SQ SCH (22:00)
[2018-05-12] MEDS: HEPARIN SODIUM,PORCINE 5,000 UNIT/ML 1 ML VIAL SQ SCH ×2 (08:32→19:37)
[2018-05-12] MEDS: ASPIRIN 325 MG TAB PO SCH (08:32)
[2018-05-12] MEDS ORDERED: hydrALAZINE HCL 50 MG TAB PO SCH (09:00)
[2018-05-12] MEDS ORDERED: HYDROCHLOROTHIAZIDE 12.5 MG CAP PO SCH (09:00)
[2018-05-12] MEDS: amLODIPine 10 MG TAB PO SCH (11:53)
--- NOTE | 2018-05-12 12:04 | P.PN ---
Subjective Progress Note Date: 05/12/18 Principal diagnosis: Symptomatic bradycardia This is a pleasant 80-year-old female patient with a past medical history significant for hypertension as well as history of TIA was admitted to the hospital with symptoms suggestive of TIA again. The patient was in her usual state of health until a few days ago when she suddenly started experiencing numbness involving the right side of the tongue as well as left arm. Her symptoms has resolved completely. The patient was diagnosed was TIA. She underwent a brain computed tomography scan, CTA, and also carotid to plexus study, and everything came in to be unremarkable. We get involved in the care of the patient because during her hospitalization she did have an episode of bradycardia. I did a few the telemetry strip which indicate likely what it seems to be profound bradycardia with heart rate in the 30s. The patient was unresponsive during that episode. Please note that the patient was receiving Coreg and that was stopped earlier today. Currently she is not on any AV opal adriane agents to control her blood pressure. On follow-up with the patient today, May 122018, she continues to be asymptomatic from the cardiovascular standpoint overview. No more episodes of bradycardia since the Coreg was stopped. The blood pressure continues to be not well-controlled on the current medical regimen. She was started on hydrochlorothiazide but she developed a rash to it. I am going to increase the dose of hydralazine to 75 mg by mouth 3 times a day. Objective - Vital Signs Vital signs: Vital Signs Temp 96.7 F L 05/12/18 08:35 Pulse 65 05/12/18 10:30 Resp 16 05/12/18 08:35 BP 197/94 05/12/18 10:57 Pulse Ox 98 05/12/18 08:35 Intake & Output 05/11/18 05/12/18 05/12/18 18:59 06:59 18:59 Intake Total 20 180 Output Total 0 Balance 20 180 Weight 58.3 kg Intake: IV 20 0.9% NS FLUSH 20 Oral 180 Output: Urine 0 Other: Voiding Method Toilet # Voids 4 1 - Constitutional General appearance: Present: no acute distress - Respiratory Respiratory: bilateral: CTA - Cardiovascular Rhythm: regular Heart sounds: normal: S1, S2 - Labs CBC & Chem 7: 05/11/18 06:37 05/11/18 06:37 Assessment and Plan Assessment: Assessment #1 an episode of TIA which has resolved #2 profound bradycardia, sinus bradycardia #3 hypertension, long-standing history #4 history of recurrent TIA Plan #1 increase the dose of hydralazine #2 DC hydrochlorothiazide in view of the reaction #3 follow-up on the echocardiogram #4 I recommended keeping the patient one more day to get the blood pressure under control
[2018-05-12] MEDS: hydrALAZINE HCL 50 MG TAB PO SCH (15:39)
--- NOTE | 2018-05-12 16:58 | ECHOF ---
Referral Reason:bradycardia MEASUREMENTS -------- HEIGHT: 157.5 cm WEIGHT: 58.1 kg BP: 188/88 IVSd: 1.1 cm (0.6 - 1.1) LVIDd: 4.1 cm (3.9 - 5.3) LVPWd: 1.0 cm (0.6 - 1.1) IVSs: 1.5 cm LVIDs: 3.3 cm LVPWs: 1.5 cm LA Diam: 3.0 cm (2.7 - 3.8) RVIDd: 2.9 cm (< 3.3) LAESV Index (A-L): 24.94 ml/m Ao Diam: 2.8 cm (2.0 - 3.7) AV Cusp: 1.9 cm (1.5 - 2.6) EPSS: 0.8 cm MV E Ananda: 0.75 m/s MV DecT: 237 ms MV A Ananda: 1.00 m/s MV E/A Ratio: 0.75 RAP: 5.00 mmHg RVSP: 28.15 mmHg MV EF SLOPE: 56.59 mm/s (70 - 150) MV EXCURSION: 14.66 mm (> 18.000) FINDINGS -------- Sinus rhythm. This was a technically good study. The left ventricular size is normal. Left ventricular wall thickness is normal. Overall left vent ricular systolic function is normal with, an EF between 55 - 60 %. The right ventricle is normal in size. Normal LA size by volume 22+/-6 ml/m2. The right atrium is normal in size. The aortic valve is trileaflet and appears structurally normal. There is trace mitral regurgitation. Mild tricuspid regurgitation present. Right ventricular systolic pressure is normal at < 35 mmHg. Trace/mild (physiologic) pulmonic regurgitation. The aortic root size is normal. Normal inferior vena cava with normal inspiratory collapse consistent with estimated right atrial pre ssure of 5 mmHg. There is no pericardial effusion. CONCLUSIONS -------- 1. Sinus rhythm. 2. This was a technically good study. 3. The left ventricular size is normal. 4. Left ventricular wall thickness is normal. 5. Overall left ventricular systolic function is normal with, an EF between 55 - 60 %. 6. The right ventricle is normal in size. 7. Normal LA size by volume 22+/-6 ml/m2. 8. The right atrium is normal in size. 9. The aortic valve is trileaflet and appears structurally normal. 10. There is trace mitral regurgitation. 11. Mild tricuspid regurgitation present. 12. Right ventricular systolic pressure is normal at < 35 mmHg. 13. Trace/mild (physiologic) pulmonic regurgitation. 14. The aortic root size is normal. 15. Normal inferior vena cava with normal inspiratory collapse consistent with estimated right atrial pressure of 5 mmHg. 16. There is no pericardial effusion. SKIP HOIST ENGINEER: Shonda Gallegos RDCS
[2018-05-12] MEDS: IBUPROFEN 400 MG TAB PO PRN (19:38)
--- NOTE | 2018-05-13 00:06 | PN ---
PROGRESS NOTE CHIEF COMPLAINT: Re-evaluation. HISTORY OF PRESENT ILLNESS: This is an 82-year-old female who was admitted to the hospital with symptoms suggestive of TIA. Workup was negative. She had negative carotids and brain scans and CT angio of the brain. The patient had an episode of significant bradycardia with the syncopal episode. The patient, however, has continued to exhibit significantly high blood pressure since she was off any beta blockers. She had an echocardiogram done today which reveals normal left atrial size and left ventricular size with an ejection fraction of 55% to 60%, and left ventricular wall thickness was normal. Her blood pressures are jumping up to 200 at times. She is being given hydralazine and Norvasc and hydrochlorothiazide, after which she developed a rash, and this was discontinued. REVIEW OF SYSTEMS: NEURO: Denies any headaches, dizziness. PSYCH: No anxiety. CARDIAC: No chest pain, angina, palpitations. RESPIRATORY: No shortness of breath, cough, hemoptysis. GI: No nausea, vomiting, abdominal pain, diarrhea. : No symptoms of dysuria or hematuria, urgency, frequency. EXTREMITIES: No pain. CONSTITUTIONAL: No fever or chills. PHYSICAL EXAMINATION: Pleasant lady in no distress. Vital signs this morning revealed temperature 96.7, pulse 66, respirations 16. Blood pressure was recorded at 188/88. HEENT: Normocephalic. NECK: Supple. No JVD. CHEST: Clear to auscultation and percussion. CARDIAC: Normal S1, S2 with no gallops, murmurs or rubs. ABDOMEN: Soft. Bowel sounds normal. No organomegaly. No abdominal bruits. Extremities reveal no edema. Good pulses, both upper and lower extremities. Neurologically awake, alert, oriented x3 with well-coordinated movements. LABORATORY ASSESSMENT: Normal CBC. BUN 21, creatinine 1.0 and GFR at 53. ASSESSMENT: 1. Uncontrolled labile hypertension. 2. Transient ischemic attack, resolved. 3. Chronic kidney disease III. PLAN: The patient is stable. Continue present medical regimen. Patient's blood pressure medications are being adjusted. As mentioned above, ALLERGY TO HYDROCHLOROTHIAZIDE. Patient's condition was discussed with the patient. Prognosis guarded. The patient has been seen by Cardiology. MMODL / IJN: [id number] /
[2018-05-13] MEDS: hydrALAZINE HCL 50 MG TAB PO SCH ×4 (03:48→21:44)
[2018-05-13] MEDS: ASPIRIN 325 MG TAB PO SCH (08:38)
[2018-05-13] MEDS: HEPARIN SODIUM,PORCINE 5,000 UNIT/ML 1 ML VIAL SQ SCH ×2 (08:38→21:47)
[2018-05-13] MEDS: amLODIPine 10 MG TAB PO SCH (08:39)
[2018-05-13] MEDS ORDERED: HYDROCHLOROTHIAZIDE 25 MG TAB PO SCH (09:00)
[2018-05-13] MEDS: IBUPROFEN 400 MG TAB PO PRN ×2 (11:42→21:44)
--- NOTE | 2018-05-13 12:07 | P.PN ---
Subjective Progress Note Date: 05/13/18 Principal diagnosis: Symptomatic bradycardia This is a pleasant 80-year-old female patient with a past medical history significant for hypertension as well as history of TIA was admitted to the hospital with symptoms suggestive of TIA again. The patient was in her usual state of health until a few days ago when she suddenly started experiencing numbness involving the right side of the tongue as well as left arm. Her symptoms has resolved completely. The patient was diagnosed was TIA. She underwent a brain computed tomography scan, CTA, and also carotid to plexus study, and everything came in to be unremarkable. We get involved in the care of the patient because during her hospitalization she did have an episode of bradycardia. I did a few the telemetry strip which indicate likely what it seems to be profound bradycardia with heart rate in the 30s. The patient was unresponsive during that episode. Please note that the patient was receiving Coreg and that was stopped earlier today. Currently she is not on any AV opal adriane agents to control her blood pressure. She underwent an echocardiogram which revealed normal LV function without any significant valvular abnormalities. On follow-up with the patient today, May [id number], she continues to be asymptomatic from the cardiac vascular standpoint overview. Yesterday I did increase the dose of hydralazine to 75 mg by mouth 3 times a day. The blood pressure today seems to be better and its in the 140s to 150s millimeters mercury. Objective - Vital Signs Vital signs: Vital Signs Temp 97.7 F 05/13/18 08:00 Pulse 80 05/13/18 08:00 Resp 18 05/13/18 08:00 BP 142/88 05/13/18 08:00 Pulse Ox 97 05/13/18 08:00 Intake & Output 05/12/18 05/13/18 05/13/18 18:59 06:59 18:59 Intake Total 360 240 Output Total 0 0 500 Balance 360 0 -260 Weight 58.6 kg Intake: Oral 360 240 Output: Urine 0 0 500 Other: Voiding Method Toilet Toilet - Constitutional General appearance: Present: no acute distress - Respiratory Respiratory: bilateral: CTA - Cardiovascular Rhythm: regular Heart sounds: normal: S1, S2 - Labs CBC & Chem 7: 05/11/18 06:37 05/11/18 06:37 Assessment and Plan Assessment: Assessment #1 an episode of TIA which has resolved #2 profound bradycardia, sinus bradycardia #3 hypertension, long-standing history #4 history of recurrent TIA Plan #1 continue the current dose of hydralazine #2 the echo was done and showed normal LV function #3 follow-up on the echocardiogram We'll continue following up with the patient
--- NOTE | 2018-05-14 00:13 | PN ---
PROGRESS NOTE ATTENDING PHYSICIAN: Dr. Tomas Ennis. CHIEF COMPLAINT: Re-evaluation. HISTORY OF PRESENT ILLNESS: This is an 82-year-old female was admitted to the hospital with TIA. The patient also had an episode of significant bradycardia with associated syncope. The patient subsequent to that, Coreg was discontinued. The patient started on hydrochlorothiazide which created her to have a rash. The patient is on hydralazine. Last night, she refused that dose as the blood pressure was 140 and she thought it will get too low. As the patient's blood pressure was 143/78. This morning, patient's blood pressure 142/88. She denies any symptoms. She has had no headaches, dizziness. She has chronic neck pain. REVIEW OF SYSTEMS: Neuro: Denies any headaches, dizziness. Psych: No anxiety, depression. Cardiac: No chest pain, angina or palpitations. Respiratory: No shortness of breath, cough, hemoptysis. GI: No nausea, vomiting, abdominal pain, diarrhea. no symptoms of dysuria or hematuria, urgency or frequency. EXTREMITIES: Denies pain, edema. CONSTITUTIONAL: No fever or chills. PHYSICAL EXAMINATION: Pleasant female in no distress. Vital signs revealed temperature 97.7, pulse 80, respirations 18, blood pressure 142/88, pulse ox 97% on room air. HEENT: Normocephalic. Neck no JVD. CHEST: Clear to auscultation and percussion. Cardiac: Normal S1, S2 with no gallops, murmurs. ABDOMEN: Soft. No palpable masses. Bowel sounds normal. No organomegaly. No abdominal bruits. Extremities reveal no edema. No tenderness. NEUROLOGIC: Awake, alert, oriented x3 with well-coordinated movements. LABORATORY ASSESSMENT: None new. Echocardiogram done yesterday had revealed normal left ventricular function and aortic root size was normal. ASSESSMENT: 1. Transient ischemic attack, resolved. 2. Syncope, resolved. 3. Bradycardia, resolved. 4. Accelerated hypertension. PLAN: The patient is stable. Continue present medical regimen. Patient's condition discussed with the patient. Prognosis is guarded. If blood pressure remains stable today, she will be able to be discharged home tomorrow. MMODL / IJN: [id number] /
[2018-05-14 04:47] VITALS: TEMP 98.2
[2018-05-14] MEDS: HEPARIN SODIUM,PORCINE 5,000 UNIT/ML 1 ML VIAL SQ SCH (08:31)
[2018-05-14] MEDS: hydrALAZINE HCL 50 MG TAB PO SCH (08:36)
[2018-05-14] MEDS: ASPIRIN 325 MG TAB PO SCH (08:36)
[2018-05-14] MEDS: amLODIPine 10 MG TAB PO SCH (08:40)
[2018-05-14 09:11] VITALS: BP 117/72; PULSE 93; RESP 18
== END 2018-05-14 09:50 | disposition home or self-care (01) | DRG 69 ==
LOC: EC 09:11 → 3SCARD 12:34 → OBSVTOIN 21:52
PROVIDERS: ADMIT Internal Medicine; ATTEND Internal Medicine
DX: G45.9 Transient cerebral ischemic attack, unspecified (principal); I71.2 Thoracic aortic aneurysm, without rupture; N18.3 Chronic kidney disease, stage 3 (moderate); R00.1 Bradycardia, unspecified; G89.29 Other chronic pain; I12.9 Hypertensive chronic kidney disease with stage 1 through stage 4 chronic kidney disease, or unspecified chronic kidney disease; M54.2 Cervicalgia; R21 Rash and other nonspecific skin eruption; I44.0 Atrioventricular block, first degree; T50.2X5A Adverse effect of carbonic-anhydrase inhibitors, benzothiadiazides and other diuretics, initial encounter; Z79.82 Long term (current) use of aspirin; Z79.899 Other long term (current) drug therapy; Z91.040 Latex allergy status; Z90.710 Acquired absence of both cervix and uterus; Z86.73 Personal history of transient ischemic attack (TIA), and cerebral infarction without residual deficits; Z83.3 Family history of diabetes mellitus; Y92.239 Unspecified place in hospital as the place of occurrence of the external cause
CPT/HCPCS: 36415; 70450; 70496; 70498; 71046; 80048; 80053; 80061; 82550; 82553; 84443; 84484; 85025; 85027; 85610; 85730; 93005; 93306; 93880; 94760; 96374; 99285

== ENCOUNTER 2018-09-17 11:46 | Emergency (ER) | payer MEDICARE, OTHER ==
[2018-09-17] MEDS ORDERED: SODIUM CHLORIDE 0.9% 1,000 ML IV STA (12:35)
--- NOTE | 2018-09-17 12:39 | ED ---
General Adult HPI - General Chief complaint: Neuro Symptoms/Deficit Stated complaint: Paresthesia Time Seen by Provider: 09/17/18 11:59 Source: patient, family, RN notes reviewed Mode of arrival: wheelchair Limitations: no limitations - History of Present Illness Initial comments: Patient is a pleasant 83-year-old female presenting to the emergency Department with paresthesias. Onset of symptoms was around 7 AM. Patient states there is tingling sensation to the left side of the face as well as left arm. Patient does become emotional and tearful during history taking. Patient states symptoms have improved however not completely resolved. Patient denies loss of sensation. Patient denies any weakness. No confusion.No speech problems. No headache. No history of similar symptoms previously. - Related Data Home Medications Medication Instructions Recorded Confirmed Vitamin B Complex 1 cap PO DAILY 05/10/18 09/17/18 LORazepam [Ativan] 0.5 mg PO TID PRN 09/17/18 09/17/18 Previous Rx's Medication Instructions Recorded Aspirin 325 mg PO DAILY tab 05/14/18 Ibuprofen [Motrin] 400 mg PO Q4HR PRN tab 05/14/18 hydrALAZINE HCL [Apresoline] 50 mg PO TID #90 tab 05/14/18 Allergies Allergy/AdvReac Type Severity Reaction Status Date / Time Latex, Natural Rubber Allergy Unknown Verified 09/17/18 13:02 amlodipine [From Norvasc] AdvReac Swelling Verified 09/17/18 13:02 Review of Systems ROS Statement: Those systems with pertinent positive or pertinent negative responses have been documented in the HPI. ROS Other: All systems not noted in ROS Statement are negative. Constitutional: Denies: fever Eyes: Denies: eye pain ENT: Denies: ear pain Respiratory: Denies: cough Cardiovascular: Reports: palpitations (Patient has occasional palpitations which is chronic, not present at this time. Patient states she does take Ativan for this.). Denies: chest pain Endocrine: Denies: fatigue Gastrointestinal: Denies: abdominal pain Genitourinary: Denies: dysuria Musculoskeletal: Denies: back pain Neurological: Denies: headache, weakness, numbness, confusion, abnormal gait, vertigo Past Medical History Past Medical History: CVA/TIA, Hypertension History of Any Multi-Drug Resistant Organisms: None Reported Past Surgical History: Hysterectomy, Tubal Ligation Additional Past Surgical History / Comment(s): UTERINE CYST REMOVAL Past Anesthesia/Blood Transfusion Reactions: No Reported Reaction Past Psychological History: No Psychological Hx Reported Smoking Status: Never smoker Past Alcohol Use History: None Reported Past Drug Use History: None Reported - Past Family History Mother Family Medical History: Diabetes Mellitus General Exam Limitations: no limitations General appearance: alert, in no apparent distress Head exam: Present: atraumatic Eye exam: Present: normal appearance, PERRL, EOMI. Absent: nystagmus ENT exam: Present: normal oropharynx Neck exam: Present: normal inspection Respiratory exam: Present: normal lung sounds bilaterally Cardiovascular Exam: Present: regular rate, normal rhythm GI/Abdominal exam: Present: soft. Absent: tenderness Extremities exam: Present: normal inspection. Absent: pedal edema, calf tenderness Neurological exam: Present: alert, CN II-XII intact. Absent: motor sensory deficit Expanded Neurological exam: Present: protecting the airway Speech: Present: fluid speech Cranial nerves: EOM's Intact: Normal, Facial Sensation: Normal Cerebellar function: Finger to Nose: Normal Sensory exam: Upper Extremity Light Touch: Normal, Lower Extremity Light Touch: Normal Motor strength exam: RUE: 5, LUE: 5, RLE: 5, LLE: 5 Eye Response: (4) open spontaneously Motor Response: (6) obeys commands Verbal Response: (5) oriented Psychiatric exam: Present: normal affect, normal mood Skin exam: Present: normal color Course Vital Signs 09/17/18 09/17/18 09/17/18 11:48 12:50 13:47 Temperature 97.0 F L Pulse Rate 62 56 L 66 Respiratory 16 18 18 Rate Blood Pressure 232/85 204/89 204/93 O2 Sat by Pulse 97 97 98 Oximetry 09/17/18 09/17/18 09/17/18 14:00 15:00 15:15 Temperature Pulse Rate 58 L 58 L 56 L Respiratory 18 18 18 Rate Blood Pressure 208/95 199/97 202/82 O2 Sat by Pulse 97 96 98 Oximetry 09/17/18 09/17/18 09/17/18 15:30 16:00 16:15 Temperature 98.1 F Pulse Rate 62 60 64 Respiratory 18 18 18 Rate Blood Pressure 211/81 195/83 194/86 O2 Sat by Pulse 96 97 97 Oximetry 09/17/18 16:23 Temperature Pulse Rate 65 Respiratory 18 Rate Blood Pressure 190/85 O2 Sat by Pulse 97 Oximetry - Reevaluation(s) Reevaluation #1: 09/17/18 14:19 Patient reevaluated and resting comfortably in bed. Patient symptom-free. Patient and family updated on results and plan. Patient's blood pressure remains high and will be provided medication for this. EKG Findings - EKG Comments: EKG Findings:: Sinus rhythm at 69. For screening AV block with RI of 220. QRS 88. QT 422. QTC 452. Normal axis. Septal Q waves. No acute ST change. Medical Decision Making - Medical Decision Making Patient again reevaluated and remained symptom-free. Blood pressure has improved. Patient will be given her hydralazine prior to discharge. Advised to follow-up regarding symptoms as well as blood pressure follow-up. - Lab Data Result diagrams: 09/17/18 12:13 09/17/18 12:13 Lab Results 09/17/18 09/17/18 09/17/18 Range/Units 12:13 12:13 12:13 WBC 8.3 (3.8-10.6) k/uL RBC 4.12 (3.80-5.40) m/uL Hgb 12.2 (11.4-16.0) gm/dL Hct 38.0 (34.0-46.0) % MCV 92.1 (80.0-100.0) fL MCH 29.5 (25.0-35.0) pg MCHC 32.1 (31.0-37.0) g/dL RDW 13.5 (11.5-15.5) % Plt Count 163 (150-450) k/uL Neutrophils % 69 % Lymphocytes % 21 % Monocytes % 6 % Eosinophils % 2 % Basophils % 1 % Neutrophils # 5.7 (1.3-7.7) k/uL Lymphocytes # 1.8 (1.0-4.8) k/uL Monocytes # 0.5 (0-1.0) k/uL Eosinophils # 0.2 (0-0.7) k/uL Basophils # 0.1 (0-0.2) k/uL PT 9.5 (9.0-12.0) sec INR 0.9 (<1.2) APTT 23.5 (22.0-30.0) sec Sodium 141 (137-145) mmol/L Potassium 4.3 (3.5-5.1) mmol/L Chloride 107 (98-107) mmol/L Carbon Dioxide 25 (22-30) mmol/L Anion Gap 9 mmol/L BUN 18 H (7-17) mg/dL Creatinine 0.87 (0.52-1.04) mg/dL Est GFR (CKD-EPI)AfAm 71 (>60 ml/min/1.73 sqM) Est GFR (CKD-EPI)NonAf 62 (>60 ml/min/1.73 sqM) Glucose 86 (74-99) mg/dL Calcium 9.9 (8.4-10.2) mg/dL Total Bilirubin 0.4 (0.2-1.3) mg/dL AST 22 (14-36) U/L ALT 22 (9-52) U/L Alkaline Phosphatase 83 (38-126) U/L Troponin I (0.000-0.034) ng/mL Total Protein 7.5 (6.3-8.2) g/dL Albumin 4.4 (3.5-5.0) g/dL 09/17/18 Range/Units 12:13 WBC (3.8-10.6) k/uL RBC (3.80-5.40) m/uL Hgb (11.4-16.0) gm/dL Hct (34.0-46.0) % MCV (80.0-100.0) fL MCH (25.0-35.0) pg MCHC (31.0-37.0) g/dL RDW (11.5-15.5) % Plt Count (150-450) k/uL Neutrophils % % Lymphocytes % % Monocytes % % Eosinophils % % Basophils % % Neutrophils # (1.3-7.7) k/uL Lymphocytes # (1.0-4.8) k/uL Monocytes # (0-1.0) k/uL Eosinophils # (0-0.7) k/uL Basophils # (0-0.2) k/uL PT (9.0-12.0) sec INR (<1.2) APTT (22.0-30.0) sec Sodium (137-145) mmol/L Potassium (3.5-5.1) mmol/L Chloride (98-107) mmol/L Carbon Dioxide (22-30) mmol/L Anion Gap mmol/L BUN (7-17) mg/dL Creatinine (0.52-1.04) mg/dL Est GFR (CKD-EPI)AfAm (>60 ml/min/1.73 sqM) Est GFR (CKD-EPI)NonAf (>60 ml/min/1.73 sqM) Glucose (74-99) mg/dL Calcium (8.4-10.2) mg/dL Total Bilirubin (0.2-1.3) mg/dL AST (14-36) U/L ALT (9-52) U/L Alkaline Phosphatase (38-126) U/L Troponin I <0.012 (0.000-0.034) ng/mL Total Protein (6.3-8.2) g/dL Albumin (3.5-5.0) g/dL - Radiology Data Radiology results: report reviewed (Computed tomography scan of the brain reveals chronic changes without acute abnormality.), image reviewed (Chest x-ray shows chronic appearing apical changes) Disposition Clinical Impression: Paresthesias Disposition: HOME SELF-CARE Condition: Stable Instructions (If sedation given, give patient instructions): Hypertension (ED), Paresthesia (ED) Additional Instructions: Please follow-up with primary care physician in the next day or 2 for recheck. If unavailable additional follow-up is been provided. Return for weakness, confusion, speech problems, loss of sensation, uncontrolled blood pressure, worsening symptoms or any other concerns. Is patient prescribed a controlled substance at d/c from ED?: No Referrals: Toribio Ennis MD [Primary Care Provider] - 1-2 days Time of Disposition: 16:39
[2018-09-17 12:52] VITALS: RESP 18
[2018-09-17 13:02] LABS: INR 0.9 (<1.2); Partial Thromboplastin Time 23.5 sec (22.0-30.0); Prothrombin Time 9.5 sec (9.0-12.0)
[2018-09-17 13:09] LABS: Albumin 4.4 g/dL (3.5-5.0); Calcium 9.9 mg/dL (8.4-10.2); Potassium 4.3 mmol/L (3.5-5.1); Total Bilirubin 0.4 mg/dL (0.2-1.3); Total Protein 7.5 g/dL (6.3-8.2)
[2018-09-17 13:13] LABS: Basophils # (A) 0.1 k/uL (0-0.2); Basophils % (A) 1 %; Eosinophils # (A) 0.2 k/uL (0-0.7); Eosinophils % (A) 2 %; HGB 12.2 gm/dL (11.4-16.0); Lymphocytes # (A) 1.8 k/uL (1.0-4.8); Lymphocytes % (A) 21 %; MCH 29.5 pg (25.0-35.0); MCHC 32.1 g/dL (31.0-37.0); MCV 92.1 fL (80.0-100.0); Mean Platelet Volume 9.1; Monocytes # (A) 0.5 k/uL (0-1.0); Monocytes % (A) 6 %; Neutrophils # (A) 5.7 k/uL (1.3-7.7); Neutrophils % (A) 69 %; Platelet Count 163 k/uL (150-450); RBC 4.12 m/uL (3.80-5.40); RDW 13.5 % (11.5-15.5); WBC 8.3 k/uL (3.8-10.6)
--- NOTE | 2018-09-17 13:28 | CT ---
EXAMINATION TYPE: CT brain wo con DATE OF EXAM: 09/17/2018 COMPARISON: 05/10/2018 INDICATION: Lt facial numbness DLP: 1019.4 mGycm, Automated exposure control for dose reduction was used. CONTRAST: None CT of the brain is performed utilizing 3 mm thick sections through the posterior fossa and 3 mm thick sections through the remaining calvarium. Study is performed within 24 hours of arrival to the hosp [facility]. No abnormal hyperdensity is present to suggest an acute intracranial hemorrhage. No mass lesion is evident. No acute infarcts are evident. Patchy periventricular white matter hypodensity is present which can b e compatible with chronic white matter ischemic changes. The pattern appears stable. Ventricles and sulci are appropriate for the patient age. There is a patent cavum septum pellucidum, a normal variant. Paranasal sinuses and mastoid air cells within the [id number] are clear. IMPRESSIONS: 1. Chronic appearing periventricular white matter ischemic changes
--- NOTE | 2018-09-17 13:33 | XR ---
EXAMINATION TYPE: XR chest 2V DATE OF EXAM: 09/17/2018 COMPARISON: 05/10/2018, 01/29/2018 INDICATION: Right-sided numbness altered mental status TECHNIQUE: Frontal and lateral views of the chest are obtained. FINDINGS: The heart size is normal. The pulmonary vasculature is normal. There is some increased lung markings the lung apices, greater on the right than the left. This is be en present previously.. An acute pulmonary process is not otherwise identified. IMPRESSION: 1. Chronic appearing apical changes. This can be monitored. If the clinical symptoms do not match angela pected chronic nature, other etiologies should be considered which would include atypical forms of pn eumonia.
[2018-09-17] MEDS ORDERED: ENALAPRILAT 1.25 MG/ML 1 ML VIAL IVP STA ×2 (14:17→15:33)
[2018-09-17] MEDS ORDERED: LORazepam 1 MG TAB PO STA (15:34)
[2018-09-17 16:26] VITALS: PULSE 65
[2018-09-17] MEDS ORDERED: hydrALAZINE HCL 50 MG TAB PO STA (16:37)
[2018-09-17 16:59] VITALS: BP 195/92; TEMP 97.8
== END 2018-09-17 16:59 | disposition home or self-care (01) ==
LOC: EC 11:46
DX: R20.2 Paresthesia of skin (principal); Z86.73 Personal history of transient ischemic attack (TIA), and cerebral infarction without residual deficits; Z79.899 Other long term (current) drug therapy; Z88.8 Allergy status to other drugs, medicaments and biological substances; Z91.040 Latex allergy status
CPT/HCPCS: 36415; 70450; 71046; 80053; 84484; 85025; 85610; 85730; 93005; 96361; 96374; 96376; 99284

== ENCOUNTER 2022-10-17 18:45 | Observation (INO) | payer MEDICARE, OTHER ==
[2022-10-17] MEDS ORDERED: LABETALOL 5 MG/ML VIAL MDV IVP STA (21:12)
[2022-10-17] MEDS ORDERED: KETOROLAC 15 MG/ML 1 ML VIAL IVP STA (21:12)
[2022-10-17] MEDS ORDERED: SODIUM CHLORIDE 0.9% 500 ML 500 ML IV STA (21:12)
--- NOTE | 2022-10-17 21:32 | ED ---
Recheck HPI - General Chief Complaint: Recheck/Abnormal Lab/Rx Stated Complaint: hypertension Time Seen by Provider: 10/17/22 21:11 Source: patient, RN notes reviewed, old records reviewed Mode of arrival: ambulatory Limitations: no limitations - History of Present Illness Initial Comments: This is a 87-year-old female. Patient presents today for evaluation regards to not feeling well. Patient states something is making her feel not right she took her blood pressure noticed to be severely elevated with some blurry vision and lightheadedness. Patient has been taking all medications as prescribed. Denying any chest pain shortness of breath or abdominal pain. Symptoms began just this afternoon and does haven't improved throughout the day. Patient had a normal day-to-day working in the garden working outside which was not anything of increased stress to the patient. Patient presents with family member at bedside Complaint: abnormal lab (Elevated blood pressure) -: unknown Returns Today for: persistent/worsening pain related to initial visit, other (Blurry vision and elevated blood pressure) Symptoms Since Prior Visit: no new symptoms (Increased blood pressure) Context: planned re-check Associated Symptoms: none - Related Data Home Medications Medication Instructions Recorded Confirmed Ferrous Sulfate [Iron (65 MG 325 mg PO Q48H 10/18/22 10/18/22 Elemental)] hydroCHLOROthiazide 12.5 mg PO DAILY 10/18/22 10/18/22 Previous Rx's Medication Instructions Recorded Atorvastatin [Lipitor] 10 mg PO DAILY 30 Days #30 tab 10/19/22 Metoprolol Tartrate [Lopressor] 12.5 mg PO BID 30 Days #60 tab 10/19/22 Valsartan [Diovan] 160 mg PO DAILY 30 Days #30 tab 10/19/22 amLODIPine [Norvasc] 5 mg PO DAILY 30 Days #30 tab 10/19/22 hydrALAZINE HCL [Apresoline] 50 mg PO TID 30 Days #90 tab 10/19/22 Allergies Allergy/AdvReac Type Severity Reaction Status Date / Time Latex, Natural Rubber Allergy Unknown Verified 10/17/22 18:51 amlodipine [From Norvasc] AdvReac Swelling Verified 10/19/22 08:18 Review of Systems ROS Statement: Those systems with pertinent positive or pertinent negative responses have been documented in the HPI. ROS Other: All systems not noted in ROS Statement are negative. Past Medical History Past Medical History: CVA/TIA, Hypertension History of Any Multi-Drug Resistant Organisms: None Reported Past Surgical History: Hysterectomy, Tubal Ligation Additional Past Surgical History / Comment(s): UTERINE CYST REMOVAL Past Anesthesia/Blood Transfusion Reactions: No Reported Reaction Past Psychological History: No Psychological Hx Reported Smoking Status: Never smoker Past Alcohol Use History: None Reported Past Drug Use History: None Reported - Past Family History Mother Family Medical History: Diabetes Mellitus General Exam General appearance: alert, in no apparent distress Head exam: Present: atraumatic, normocephalic, normal inspection Eye exam: Present: normal appearance, PERRL, EOMI. Absent: scleral icterus, conjunctival injection, periorbital swelling ENT exam: Present: normal exam, mucous membranes moist Neck exam: Present: normal inspection. Absent: tenderness, meningismus, lymphadenopathy Respiratory exam: Present: normal lung sounds bilaterally. Absent: respiratory distress, wheezes, rales, rhonchi, stridor Cardiovascular Exam: Present: regular rate, normal rhythm, normal heart sounds. Absent: systolic murmur, diastolic murmur, rubs, gallop, clicks GI/Abdominal exam: Present: soft, normal bowel sounds. Absent: distended, tenderness, guarding, rebound, rigid Extremities exam: Present: normal inspection, full ROM, normal capillary refill. Absent: tenderness, pedal edema, joint swelling, calf tenderness Back exam: Present: normal inspection Neurological exam: Present: alert, oriented X3, CN II-XII intact Psychiatric exam: Present: normal affect, normal mood Skin exam: Present: warm, dry, intact, normal color. Absent: rash Course Vital Signs 10/17/22 10/17/22 10/17/22 18:51 21:44 22:34 Temperature 98.4 F 97.6 F Pulse Rate 70 60 58 L Respiratory 18 16 17 Rate Blood Pressure 214/98 198/99 183/83 O2 Sat by Pulse 97 95 96 Oximetry 10/17/22 10/18/22 10/18/22 23:09 01:27 02:00 Temperature 97.7 F Pulse Rate 60 62 52 L Respiratory 16 15 Rate Blood Pressure 189/86 171/79 197/82 O2 Sat by Pulse 96 97 Oximetry - Reevaluation(s) Reevaluation #1: 10/18/22 01:01 Medical records reviewed Reevaluation #2: 10/18/22 01:01 Patient's blood pressure is mildly improved Patient still feels unwell Reevaluation #3: 10/18/22 01:02 Patient informed results questions answered Reevaluation #4: 10/17/22 23:21 Was pt. sent in by a medical professional or institution? @ -no Did you speak to anyone other than the patient for history? @ -no Did you review nursing and triage notes? @ -agree Were old charts reviewed? @ -yes Differential Diagnosis? @ -prior EKG interpreted by me (3pts min.)? @ -yes X-rays interpreted by me (1pt min.)? @ -yes CT interpreted by me (1pt min.)? @ -no U/S interpreted by me (1pt. min.)? @ -no What testing was considered but not performed? (CT, X-rays, U/S, labs)? Why? @ -no What meds were considered but not given? Why? @ -no Did you discuss the management of the patient with other professionals? @ -no Did you reconcile home meds? @ -no Was smoking cessation discussed for >3mins.? @ -no Was critical care preformed (if so, how long)? @ -yes31 Were there social determinants of health that impacted care today? How? (Homelessness, low income, unemployed, alcoholism, drug addiction, transportation, low edu. Level, literacy, decrease access to med. care, nursing home, rehab)? @ -no Was there de-escalation of care discussed even if they declined? (Discuss DNR or withdrawal of care, Hospice)? @ -no What co-morbidities impacted this encounter? (DM, HTN, Smoking, COPD, CAD, Cancer, CVA, Hep., AIDS, mental health diagnosis, sleep apnea, morbid obesity)? @ -none Was patient admitted / discharged? @ -87 female will be admitted for trending of troponin with mild troponin leak hypertensive urgency weakness lightheadedness and dizziness, patient feels unwell Admitted Undiagnosed new problem with uncertain prognosis? @ -no Drug Therapy requiring intensive monitoring for toxicity (Heparin, Nitro, Insulin, Cardizem)? @ -no Were any procedures done? @ -no Diagnosis/symptom? @ --Hypertensive emergency chest pain non-STEMI Acute, or Chronic, or Acute on Chronic? @ -acute Uncomplicated (without systemic symptoms) or Complicated (systemic symptoms)? @ -complicated Side effects of treatment? @ -no Exacerbation, Progression, or Severe Exacerbation] @ -no Poses a threat to life or bodily function? @ -yes severely elevated blood pressure extremities of age and elevated troponin Reevaluation #5: 10/18/22 01:02 Differential Weakness: Hypoglycemia, shock, sepsis, hyponatremia, anemia, infection, NV, ETOH, adverse medicine reaction, overdose, stroke, this is not meant to be an all-inclusive list. - Consultations Consultation #1: Spoke with admitting physicians, sound regarding patient who agree to admit this patient Medical Decision Making - Medical Decision Making 87 female will be admitted for trending of troponin with mild troponin leak hypertensive urgency weakness lightheadedness and dizziness, patient feels unwell - Lab Data Result diagrams: 10/17/22 21:33 10/17/22 21:33 Lab Results 10/17/22 10/17/22 10/17/22 Range/Units 21:33 21:33 21:33 WBC 8.5 (3.8-10.6) k/uL RBC 4.23 (3.80-5.40) m/uL Hgb 13.1 (11.4-16.0) gm/dL Hct 40.3 (34.0-46.0) % MCV 95.2 (80.0-100.0) fL MCH 30.9 (25.0-35.0) pg MCHC 32.5 (31.0-37.0) g/dL RDW 12.7 (11.5-15.5) % Plt Count 187 (150-450) k/uL MPV 8.7 Neutrophils % 61 % Lymphocytes % 29 % Monocytes % 6 % Eosinophils % 3 % Basophils % 1 % Neutrophils # 5.2 (1.3-7.7) k/uL Lymphocytes # 2.5 (1.0-4.8) k/uL Monocytes # 0.5 (0-1.0) k/uL Eosinophils # 0.2 (0-0.7) k/uL Basophils # 0.0 (0-0.2) k/uL PT 9.8 (9.0-12.0) sec INR 0.9 (<1.2) APTT 24.1 (22.0-30.0) sec Sodium 137 (137-145) mmol/L Potassium 4.4 (3.5-5.1) mmol/L Chloride 102 (98-107) mmol/L Carbon Dioxide 26 (22-30) mmol/L Anion Gap 9 mmol/L BUN 28 H (7-17) mg/dL Creatinine 1.26 H (0.52-1.04) mg/dL Est GFR (CKD-EPI)AfAm 44 (>60 ml/min/1.73 sqM) Est GFR (CKD-EPI)NonAf 38 (>60 ml/min/1.73 sqM) Glucose 94 (74-99) mg/dL Plasma Lactic Acid Raj (0.7-2.0) mmol/L Calcium 9.6 (8.4-10.2) mg/dL Phosphorus 3.9 (2.5-4.5) mg/dL Magnesium 2.0 (1.6-2.3) mg/dL Total Bilirubin 0.4 (0.2-1.3) mg/dL AST 20 (14-36) U/L ALT 15 (4-34) U/L Alkaline Phosphatase 91 (38-126) U/L Troponin I (0.000-0.034) ng/mL NT-Pro-B Natriuret Pep pg/mL Total Protein 7.7 (6.3-8.2) g/dL Albumin 4.5 (3.5-5.0) g/dL 10/17/22 10/17/22 10/17/22 Range/Units 21:33 21:33 21:33 WBC (3.8-10.6) k/uL RBC (3.80-5.40) m/uL Hgb (11.4-16.0) gm/dL Hct (34.0-46.0) % MCV (80.0-100.0) fL MCH (25.0-35.0) pg MCHC (31.0-37.0) g/dL RDW (11.5-15.5) % Plt Count (150-450) k/uL MPV Neutrophils % % Lymphocytes % % Monocytes % % Eosinophils % % Basophils % % Neutrophils # (1.3-7.7) k/uL Lymphocytes # (1.0-4.8) k/uL Monocytes # (0-1.0) k/uL Eosinophils # (0-0.7) k/uL Basophils # (0-0.2) k/uL PT (9.0-12.0) sec INR (<1.2) APTT (22.0-30.0) sec Sodium (137-145) mmol/L Potassium (3.5-5.1) mmol/L Chloride (98-107) mmol/L Carbon Dioxide (22-30) mmol/L Anion Gap mmol/L BUN (7-17) mg/dL Creatinine (0.52-1.04) mg/dL Est GFR (CKD-EPI)AfAm (>60 ml/min/1.73 sqM) Est GFR (CKD-EPI)NonAf (>60 ml/min/1.73 sqM) Glucose (74-99) mg/dL Plasma Lactic Acid Raj 0.9 (0.7-2.0) mmol/L Calcium (8.4-10.2) mg/dL Phosphorus (2.5-4.5) mg/dL Magnesium (1.6-2.3) mg/dL Total Bilirubin (0.2-1.3) mg/dL AST (14-36) U/L ALT (4-34) U/L Alkaline Phosphatase (38-126) U/L Troponin I 0.014 (0.000-0.034) ng/mL NT-Pro-B Natriuret Pep 2130 pg/mL Total Protein (6.3-8.2) g/dL Albumin (3.5-5.0) g/dL - EKG Data -: EKG Interpreted by Me (EKG is sinus 62 pr 44 QRS 86 QTc 412) - Radiology Data Radiology results: report reviewed (Chest x-rays negative for acute disease), image reviewed Critical Care Time Critical Care Time: Yes Total Critical Care Time: 31 Disposition Clinical Impression: NSTEMI (non-ST elevated myocardial infarction), Chest pain, Hypertension, Sinus bradycardia Disposition: ADMITTED IP TO THIS [facility] Condition: Serious Is patient prescribed a controlled substance at d/c from ED?: No Time of Disposition: 01:00
[2022-10-17 22:08] LABS: Basophils % (A) 1 %; Eosinophils # (A) 0.2 k/uL (0-0.7); Eosinophils % (A) 3 %; HCT 40.3 % (34.0-46.0); HGB 13.1 gm/dL (11.4-16.0); Lymphocytes # (A) 2.5 k/uL (1.0-4.8); Lymphocytes % (A) 29 %; MCH 30.9 pg (25.0-35.0); MCHC 32.5 g/dL (31.0-37.0); MCV 95.2 fL (80.0-100.0); Mean Platelet Volume 8.7; Monocytes # (A) 0.5 k/uL (0-1.0); Monocytes % (A) 6 %; Neutrophils # (A) 5.2 k/uL (1.3-7.7); Neutrophils % (A) 61 %; Platelet Count 187 k/uL (150-450); RBC 4.23 m/uL (3.80-5.40); RDW 12.7 % (11.5-15.5); WBC 8.5 k/uL (3.8-10.6)
[2022-10-17 22:21] LABS: INR 0.9 (<1.2); Partial Thromboplastin Time 24.1 sec (22.0-30.0); Prothrombin Time 9.8 sec (9.0-12.0)
[2022-10-17 22:24] LABS: ALT 15 U/L (4-34); AST 20 U/L (14-36); African American GFR (CKD) 44 (>60 ml/min/1.73 sqM); Albumin 4.5 g/dL (3.5-5.0); Alkaline Phosphatase 91 U/L (38-126); Anion Gap 9 mmol/L; Blood Urea Nitrogen 28 mg/dL (7-17); Calcium 9.6 mg/dL (8.4-10.2); Carbon Dioxide 26 mmol/L (22-30); Chloride 102 mmol/L (98-107); Glucose 94 mg/dL (74-99); Non-African American GFR(CKD) 38 (>60 ml/min/1.73 sqM); Phosphorus 3.9 mg/dL (2.5-4.5); Potassium 4.4 mmol/L (3.5-5.1); Sodium 137 mmol/L (137-145); Total Bilirubin 0.4 mg/dL (0.2-1.3); Total Protein 7.7 g/dL (6.3-8.2)
--- NOTE | 2022-10-17 23:36 | XR ---
EXAMINATION TYPE: XR chest 1V portable DATE OF EXAM: 10/17/2022 COMPARISON: 09/17/2018 HISTORY: Shortness of breath TECHNIQUE: Frontal and lateral views of the chest are obtained. FINDINGS: Scattered senescent parenchymal changes noted. Hyperinflation compatible with COPD. No evidence for infiltrate. No evidence for atelectasis. Heart size is stable. Mediastinal structures are stable and grossly unremarkable. No evidence for hilar prominence. Degenerative changes dorsal spine. IMPRESSION: 1. No evidence for acute pulmonary disease.
[2022-10-18] MEDS ORDERED: MORPHINE SULFATE 4 MG/ML SYRINGE IV PRN (01:03)
[2022-10-18] MEDS ORDERED: ONDANSETRON 4 MG/2 ML VIAL IVP PRN (01:03)
[2022-10-18] MEDS ORDERED: NALOXONE 0.4 MG/ML 1 ML VIAL IV PRN (01:03)
[2022-10-18] MEDS: SODIUM CHLORIDE 0.9% 1,000 ML IV SCH ×4 (01:19→23:27)
[2022-10-18] MEDS ORDERED: LORazepam 0.5 MG TAB PO PRN (05:12)
[2022-10-18] MEDS ORDERED: cloNIDine HCL 0.1 MG TAB PO PRN (05:13)
--- NOTE | 2022-10-18 05:20 | P.HPIM ---
History of Present Illness H&P Date: 10/18/22 Chief Complaint: not feeling well 87 year old female with hypertension she is coming in for evaluation due to not feeling well all day, she was feeling lightheaded with some blurred vision and noticed her blood pressure has been elevated all day, she rested and tried to relax without much benefit and decided to come in for evaluation , denies any cardiac history or stroke. she is active at baseline, and does yard work on regular basis without limitations related to chest pain or SOB. denies any fever, chills, cough, URI symptoms , urinary or bowel habit changes, denies any bleeding, abd pain , nausea or vomiting, denies any focal neuro deficits. denies tobacco smoking or illicit drugs review of systems Pertinent positives as noted in HPI. All other systems were reviewed and are negative on physical exam Constitutional: No acute distress, conversant, pleasant Eyes: Anicteric sclerae, moist conjunctiva, Pupils equal round reactive to light ENMT: NC/AT Oropharynx clear, no erythema, or exudates Neck: Supple, no masses, or JVD No carotid bruits No thyromegaly Lungs: Clear to auscultation Clear to percussion Normal respiratory effort, no accessory muscle use Cardiovascular: Heart regular in rate and rhythm, No murmurs, gallops, or rubs No peripheral edema Abdominal: Soft Nontender, no guarding, rebound or rigidity Abdomen moving with respiration Normoactive bowel sounds No hepatomegaly, No splenomegaly No palpable mass No abdominal wall hernia noted Skin: Normal temperature, tone, texture, turgor No induration No subcutaneous nodules No rash, lesions No ulcers Extremities: No digital cyanosis No clubbing Pedal pulses intact and symmetrical Radial pulses intact and symmetrical No calf tenderness Psychiatric: Alert and oriented to person, place and time Appropriate affect fair judgement Neuro Muscles Strength 5/5 in all 4 extremities Sensation to light touch grossly present throughout Cranial nerves II-XII grossly intact Lymphatics: no palpable cervical or supraclavicular lymph nodes Past Medical History Past Medical History: CVA/TIA, Hypertension History of Any Multi-Drug Resistant Organisms: None Reported Past Surgical History: Hysterectomy, Tubal Ligation Additional Past Surgical History / Comment(s): UTERINE CYST REMOVAL Past Anesthesia/Blood Transfusion Reactions: No Reported Reaction Past Psychological History: Anxiety Smoking Status: Never smoker Past Alcohol Use History: None Reported Past Drug Use History: None Reported - Past Family History Mother Family Medical History: Diabetes Mellitus Medications and Allergies Home Medications Medication Instructions Recorded Confirmed Type Vitamin B Complex 1 cap PO DAILY 05/10/18 09/17/18 History Aspirin 325 mg PO DAILY tab 05/14/18 09/17/18 Rx Ibuprofen [Motrin] 400 mg PO Q4HR PRN tab 05/14/18 09/17/18 Rx hydrALAZINE HCL [Apresoline] 50 mg PO TID #90 tab 05/14/18 09/17/18 Rx LORazepam [Ativan] 0.5 mg PO TID PRN 09/17/18 09/17/18 History Allergies Allergy/AdvReac Type Severity Reaction Status Date / Time Latex, Natural Rubber Allergy Unknown Verified 10/17/22 18:51 amlodipine [From [facility]] AdvReac Swelling Verified 10/17/22 18:51 Physical Exam Vitals: Vital Signs Temp Pulse Resp BP Pulse Ox 10/18/22 02:00 52 L 15 197/82 10/18/22 01:27 62 171/79 97 10/17/22 23:09 97.7 F 60 16 189/86 96 10/17/22 22:34 97.6 F 58 L 17 183/83 96 10/17/22 21:44 60 16 198/99 95 10/17/22 18:51 98.4 F 70 18 214/98 97 Intake and Output 10/17/22 10/17/22 10/18/22 14:59 22:59 06:59 Other: Weight 54.431 kg 54.431 kg Results CBC & Chem 7: 10/17/22 21:33 10/17/22 21:33 Labs: Abnormal Lab Results - Last 24 Hours (Table) 10/17/22 Range/Units 21:33 BUN 28 H (7-17) mg/dL Creatinine 1.26 H (0.52-1.04) mg/dL Thrombosis Risk Factor Assmnt - Choose All That Apply Any of the Below Risk Factors Present?: No Other Risk Factors: Yes Each Risk Factor Represents 3 Points: Age 75 years or older Other congenital or acquired thrombophilia - If yes, enter type in comment: No Thrombosis Risk Factor Assessment Total Risk Factor Score: 3 Thrombosis Risk Factor Assessment Level: Moderate Risk Assessment and Plan Assessment: 87 year old female with poorly controlled hypertension , coming in due to generalized weakness, I discussed the case with ED doc, and I accepted the admission for close monitoring and blood pressure control with anticipated length of stay < 2 midnights hypertensive urgency clonidine 0.1 mg po PRN q8hr for SBP > 180 neuro checks orhtostatic vitals IVF hydration with normal saline EKG showing premature atrial ectopies otherwise no acute ST changes trops negative resume hydralazine 50 mg po tid CKD III BUN 28 , cr 1.26 monitor renal function monitor urine output avoid nephrotoxic meds electrolytes unremarkable Na 137 , cr 4.4 Hgb 13.1 unremarkable CXR no acute pathology full code DVT PPX mechanical
[2022-10-18] MEDS: hydrALAZINE HCL 50 MG TAB PO SCH ×3 (06:47→20:52)
[2022-10-18] MEDS: ASPIRIN 325 MG TAB PO SCH (08:26)
[2022-10-18] MEDS: hydroCHLOROthiazide 12.5 MG CAP PO SCH (10:42)
[2022-10-18] MEDS: VALSARTAN 80 MG TAB PO SCH ×2 (10:42→20:51)
--- NOTE | 2022-10-18 19:09 | P.PN ---
Subjective Progress Note Date: 10/18/22 Hospital course: Patient is a very pleasant 87-year-old female with a past medical history of hypertension. 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 She presented to the emergency department overnight secondary to "feeling exhausted" states that she did not feel like herself and was experiencing some lightheadedness and generalized blurred vision. She reports her dentition should noted that her blood pressure was elevated throughout the day. Patient Underwent full evaluation in the emergency department. CBC, coags, and CMP were completed and were unremarkable with the exception of elevated renal function with BUN 28, creatinine 1.26, GFR of 38. Troponin was negative at 0.014 and proBNP was 2130.. EKG was completed showing normal sinus rhythm at 62 bpm with T-wave inversion in lateral leads aVL which is unchanged when compared to EKG completed 09/17/18 . Chest x-ray completed which was negative for acute cardiopulmonary process. Upon arrival patient found. Hypertensive urgency with blood pressure 214/98, heart rate 70, respiratory rate 18, and SpO2 97% on room air. Patient was admitted under services with consultation to cardiology. Physical exam: Vital signs reviewed and stable. General: Nontoxic, no distress and appears stated age. Derm: Skin warm and dry, normal coloration for ethnicity. Head: Atraumatic, normocephalic and symmetric. Eyes: EOMs intact, no lid lag, and anicteric sclera Mouth: no lip lesions, mucus membranes moist Cardiovascular: regular rate and rhythm with normal S1S2, no murmur, positive posterior tibial pulses bilaterally, and cap refill < 2 seconds. Lungs: Respirations even, regular, and unlabored on room air. Lungs CTA bilaterally, no rhonchi, no rales, no wheezing, and no accessory muscle usage. Abdominal: soft, nontender to palpation, no guarding, no appreciable organomegaly Ext: ROM intact. No gross muscle atrophy, no edema, no contractures Neuro: Speech clear, face symmetrical and CN II-XII grossly intact with no noted focal neuro deficits Psych: Alert and oriented to person, place, time, and situation. Appropriate and pleasant affect. Assessment and Plan of Care: Hypertensive urgency Dizziness/lightheadedness -Patient was started on hydralazine 50 mg 3 times daily and to resume daily medication regimen with hydrochlorothiazide 12.5 mg daily and valsartan 80 mg twice daily. -Cardiology consulted for persistent hypertension -Continue telemetry monitoring -Order placed for echocardiogram -Troponins trended and reviewed Resulting in 0.014, 0.015, and less than 0.012. CODE STATUS: Full code DVT prophylaxis: Heparin Discussed with: Patient and RN Anticipated discharge date: Likely 24-[address]: Home Patient was seen independently by Nurse Pracitioner. This document was prepared using [employer] dictation software. Please allow for errors in cognos lead, while rare they do occur. Mohit Rios NP rendered care for this patient independently, reviewed the findings and plan as documented in the note above. I did not physically speak with or examine the patient on this date. Objective - Vital Signs Vital signs: Vital Signs Temp 97.9 F 10/18/22 14:30 Pulse 71 10/18/22 14:30 Resp 18 10/18/22 14:30 BP 188/72 10/18/22 14:30 Pulse Ox 98 10/18/22 14:30 FiO2 Intake & Output 10/17/22 10/18/22 10/18/22 18:59 06:59 18:59 Intake Total 236 Balance 236 Weight 54.431 kg 54.431 kg Intake: Oral 236 Other: # Voids 4 2 - Labs CBC & Chem 7: 10/17/22 21:33 10/17/22 21:33 Labs: Abnormal Lab Results - Last 24 Hours (Table) 10/17/22 Range/Units 21:33 BUN 28 H (7-17) mg/dL Creatinine 1.26 H (0.52-1.04) mg/dL
[2022-10-18] MEDS: HEPARIN SODIUM,PORCINE/PF 5,000 UNIT/0.5 ML SYRINGE SQ SCH (20:53)
[2022-10-18 22:27] VITALS: RESP 16
[2022-10-19] MEDS: SODIUM CHLORIDE 0.9% 1,000 ML IV SCH (03:32)
[2022-10-19] MEDS: HEPARIN SODIUM,PORCINE/PF 5,000 UNIT/0.5 ML SYRINGE SQ SCH (07:38)
[2022-10-19] MEDS ORDERED: ATORVASTATIN 10 MG TAB PO SCH (09:00)
[2022-10-19] MEDS ORDERED: VALSARTAN 160 MG TAB PO SCH (09:00)
[2022-10-19] MEDS ORDERED: amLODIPine 5 MG TAB PO SCH (09:00)
[2022-10-19] MEDS ORDERED: METOPROLOL TARTRATE 12.5 MG TAB PO SCH (09:00)
[2022-10-19] MEDS: hydroCHLOROthiazide 12.5 MG CAP PO SCH (09:16)
[2022-10-19] MEDS: hydrALAZINE HCL 50 MG TAB PO SCH (09:17)
[2022-10-19] MEDS: ASPIRIN 325 MG TAB PO SCH (09:17)
--- NOTE | 2022-10-19 10:41 | P.CRDCN ---
History of Present Illness Consult date: 10/19/22 Consult reason: hypertension (Persistent) History of present illness: History of present illness: This is this is an 87-year-old female patient Dr. Sheets with past medical history of hypertension, dyslipidemia, carotid atherosclerosis, TIA, bradycardia, PVCs. We have been asked to evaluate the patient for persistent hypertension. Patient states that she was not feeling well. She took her blood pressure found that it was quite elevated and she also had blurred vision and lightheadedness. Her initial blood pressure on arrival to the emergency center was 214/98. The patient was admitted on the observation unit and started on her home cardiac medications in addition clonidine 0.1 mg 3 times daily was added as needed and hydralazine 50 mg 3 times daily was added. Patient's blood pressure this morning is 195/77. Orthostatic vital signs were negative. EKG sinus rhythm with no acute ST changes. Chest x-ray: No acute process CBC normal, BUN 28 and creatinine 1.26, troponins negative 3. ProBNP 2129 Home cardiac medications: Hydrochlorothiazide 12.5 mg daily, valsartan 80 mg twice daily Echocardiogram 2019 normal EF, mild TR Lexiscan stress test 2020 was normal Carotid duplex 2020 mild disease in bilateral ICAs. Review Of Systems: At the time of my evaluation: Constitutional: No fever, no chills. No weakness, fatigue or lethargy. EENT: No headache. No dizziness. Lungs: No shortness of breath, cough, no sputum production. No wheezing. Cardiovascular: No chest pain, no lower extremity edema. No palpitations. No paroxysmal nocturnal dyspnea. No orthopnea. Reports lightheadedness or dizziness. No syncopal episodes. Abdominal: No abdominal pain. No nausea, vomiting. No diarrhea. No constipation. No bloody or tarry stools. Musculoskeletal: No myalgias. No muscle weakness, no frequent falls. No back pain. No neck pain. Neurologic: No aphasia. No facial droop. No change in mentation. No head injury. No headache. Physical examination: Gen: This is an 87-year-old female. She is resting in bed and appears to be in no acute distress. VS: reviewed HEENT: Head is atraumatic, normocephalic. Pupils equal, round. Sclerae is anicteric. NECK: Supple. No JVD. . LUNGS: Clear to auscultation. No wheezes or rhonchi. No intercostal retractions. HEART: Regular rate and rhythm. Systolic murmur. ABDOMEN: Soft No tenderness. EXTREMITIES: No pedal edema. No calf tenderness. NEUROLOGICAL: Patient is awake, alert and oriented x3. Assessment: Uncontrolled hypertension Dyslipidemia Carotid atherosclerosis TIA History of bradycardia and history of PVCs Plan: Increase valsartan 260 mg daily, add Lopressor 12.5 mg twice daily Continue patient's other home cardiac medications Add Lipitor 10 mg daily Recheck blood pressure If blood pressure is improved this afternoon, patient is cleared for discharge from cardiology may follow up with Dr. Sheets in one to 2 weeks. Obtain 2-D echocardiogram Thank you kindly for this consultation. Nurse practitioner note has been reviewed, I agree with documented findings and plan of care. Patient was seen and examined. Past Medical History Past Medical History: CVA/TIA, Hypertension History of Any Multi-Drug Resistant Organisms: None Reported Past Surgical History: Hysterectomy, Tubal Ligation Additional Past Surgical History / Comment(s): UTERINE CYST REMOVAL Past Anesthesia/Blood Transfusion Reactions: No Reported Reaction Past Psychological History: Anxiety Smoking Status: Never smoker Past Alcohol Use History: None Reported Past Drug Use History: None Reported - Past Family History Mother Family Medical History: Diabetes Mellitus Medications and Allergies Home Medications Medication Instructions Recorded Confirmed Type Ferrous Sulfate [Feosol] 325 mg PO Q48H 10/18/22 10/18/22 History Valsartan [Diovan] 80 mg PO BID 10/18/22 10/18/22 History hydroCHLOROthiazide 12.5 mg PO DAILY 10/18/22 10/18/22 History Allergies Allergy/AdvReac Type Severity Reaction Status Date / Time Latex, Natural Rubber Allergy Unknown Verified 10/17/22 18:51 amlodipine [From Norvas] AdvReac Swelling Verified 10/19/22 08:18 Physical Exam Vitals: Vital Signs Temp Pulse Pulse Pulse Pulse Resp BP 10/19/22 07:10 97.7 F 57 L 67 63 16 195/77 10/19/22 02:00 97.7 F 64 16 10/18/22 20:00 98.2 F 67 16 10/18/22 14:30 97.9 F 71 18 BP BP BP Pulse Ox FiO2 10/19/22 07:10 179/84 192/81 98 10/19/22 02:00 189/83 96 10/18/22 20:00 188/70 96 10/18/22 14:30 188/72 98 Intake and Output 10/18/22 10/19/22 10/19/22 22:59 06:59 14:59 Other: # Voids 1 Results 10/17/22 21:33 10/17/22 21:33 Cardiac Enzymes 10/18/22 Range/Units 07:29 Troponin I <0.012 (0.000-0.034) ng/mL Current Medications Generic Name Dose Route Start Last Admin Trade Name Freq PRN Reason Stop Dose Admin Aspirin 325 mg 10/18/22 09:00 10/18/22 08:26 Aspirin 325 Mg Tab PO 325 mg DAILY GER Administration Clonidine 0.1 mg 10/18/22 05:13 Clonidine Hcl 0.1 Mg Tab PO TID PRN Blood Pressure - High Heparin Sodium (Porcine) 5,000 unit 10/19/22 00:00 10/19/22 07:38 Heparin Sodium,Porcine/Pf 5,000 Unit/0.5 Ml Syringe SQ Not Given Q8HR GER Hydralazine HCl 50 mg 10/18/22 09:00 10/18/22 20:52 Hydralazine Hcl 50 Mg Tab PO 50 mg TID GER Administration Hydrochlorothiazide 12.5 mg 10/18/22 09:15 10/18/22 10:42 Hydrochlorothiazide 12.5 Mg Cap PO 12.5 mg DAILY GER Administration Sodium Chloride 1,000 mls @ 130 mls/hr 10/18/22 01:15 10/19/22 03:32 Saline 0.9% IV 130 mls/hr .Q7H42M GER Administration Lorazepam 0.5 mg 10/18/22 05:12 Lorazepam 0.5 Mg Tab PO TID PRN Anxiety Morphine Sulfate 4 mg 10/18/22 01:03 Morphine Sulfate 4 Mg/Ml Syringe IV Q4HR PRN Severe Pain (Scale 7 to 10) Naloxone HCl 0.2 mg 10/18/22 01:03 Naloxone 0.4 Mg/Ml 1 Ml Vial IV Q2M PRN Opioid Reversal Ondansetron HCl 4 mg 10/18/22 01:03 Ondansetron 4 Mg/2 Ml Vial IVP Q8HR PRN Nausea And Vomiting Valsartan 80 mg 10/18/22 09:15 10/18/22 20:51 Valsartan 80 Mg Tab PO 80 mg BID GER Administration Intake and Output 10/18/22 10/19/22 10/19/22 22:59 06:59 14:59 Other: # Voids 1 10/17/22 21:33 10/17/22 21:33
--- NOTE | 2022-10-19 12:44 | CA ---
Transthoracic Echo Report Name: Christin Liu Age: 87 Gender: F : 1935 Exam Date: 10/19/2022 08:31 Exam Location: [facility] Ht (in): 63 Wt (lb): 120 Ordering Physician: Mohit Rios Attending/Referring Phys: Cad Designer Franklyn Campuzano Procedure CPT: Indications: Persistent hypertension Cardiac Hx: Technical Quality: Fair Contrast 1: Total Dose (mL): Contrast 2: Total Dose (mL): MEASUREMENTS (Male / Female) Normal Values 2D ECHO LV Diastolic Diameter PLAX 4.8 cm 4.2 - 5.9 / 3.9 - 5.3 cm LV Systolic Diameter PLAX 3.3 cm IVS Diastolic Thickness 0.8 cm 0.6 - 1.0 / 0.6 - 0.9 cm LVPW Diastolic Thickness 0.9 cm 0.6 - 1.0 / 0.6 - 0.9 cm LV Relative Wall Thickness 0.3 RV Internal Dim ED PLAX 2.8 cm LVOT Diameter 2.2 cm Aortic Root Diameter 2.7 cm LA Systolic Diameter LX 3.1 cm 3.0 - 4.0 / 2.7 - 3.8 cm LV Diastolic Volume MOD BP 49.9 cm??? 67 - 155 / 56 - 104 cm??? LV Systolic Volume MOD BP 20.2 cm??? 22 - 58 / 19 - 49 cm??? LV Ejection Fraction MOD BP 59.5 % >= 55 % LV Diastolic Volume MOD 4C 51.0 cm??? LV Systolic Volume MOD 4C 21.4 cm??? LV Ejection Fraction MOD 4C 58.0 % LV Diastolic Length 4C 6.2 cm LV Systolic Length 4C 5.3 cm LV Diastolic Volume MOD 2C 48.5 cm??? LV Systolic Volume MOD 2C 18.1 cm??? LV Ejection Fraction MOD 2C 62.6 % LV Diastolic Length 2C 6.3 cm LV Systolic Length 2C 5.7 cm LA Volume 46.9 cm??? 18 - 58 / 22 - 52 cm??? Ascending Aorta Diameter 3.2 cm DOPPLER AV Peak Velocity 148.2 cm/s AV Peak Gradient 8.8 mmHg AV Mean Velocity 97.8 cm/s AV Mean Gradient 4.3 mmHg AV Velocity Time Integral 39.7 cm LVOT Peak Velocity 67.9 cm/s LVOT Peak Gradient 1.8 mmHg AV Area Cont Eq pk 1.8 cm??? MV Peak Velocity 101.1 cm/s MV Peak Gradient 4.1 mmHg MV Mean Velocity 53.1 cm/s MV Mean Gradient 1.4 mmHg MV Velocity Time Integral 47.0 cm MR Peak Velocity 464.1 cm/s MR Peak Gradient 86.2 mmHg Mitral E Point Velocity 90.2 cm/s Mitral A Point Velocity 97.7 cm/s Mitral E to A Ratio 0.9 MV Deceleration Time 138.9 ms MV E' Velocity 5.8 cm/s Mitral E to MV E' Ratio 15.6 TR Peak Velocity 273.3 cm/s TR Peak Gradient 29.9 mmHg Right Ventricular Systolic Press 40.0 mmHg PV Peak Velocity 88.7 cm/s PV Peak Gradient 3.1 mmHg FINDINGS Left Ventricle Normal LV Size and wall thickness. Left ventricular ejection fraction is estimated at 45-50 %. Right Ventricle Normal right ventricular size. RVSP= 36mmhg Right Atrium Normal right atrial size. Left Atrium Normal left atrial size. Mitral Valve Structurally normal mitral valve. Mild to moderate MR. Aortic Valve Trileaflet aortic valve. AV sclerosis without stenosis or regurgitation. Tricuspid Valve Structurally normal tricuspid valve. Moderate TR. Pulmonic Valve Pulmonic valve not well visualized. Mild PI. Pericardium Normal pericardium. Aorta Normal size aortic root and proximal ascending aorta. CONCLUSIONS Normal LV size with mild global decrease in contractility. Mild to moderate mitral and tricuspid regurgitation. Mild pulmonary hypertension no pericardial effusion Previewed by: Dr. Kamala Roberts MD (Electronically Signed) Final Date: 19 October 2022 12:42
--- NOTE | 2022-10-19 13:27 | P.DS ---
Providers Date of admission: 10/18/22 01:03 Expected date of discharge: 10/19/22 Attending physician: Danielle Liu MD Consults: 10/18/22 19:03 Consult Physician Routine Consulting Provider: Kamala Roberts Consult Reason/Comments: persistent hypertension Do you want consulting provider notified?: Yes Primary care physician: Boogie Fagan MD Hospital Course: Discharge Diagnosis: Hypertensive urgency, blood pressures improved. After multiple medication changes patient's blood pressure 131/56 at time of discharge. Patient being discharged home on valsartan 160 mg daily, metoprolol 12.5 mg twice daily, hydralazine 50 mg 3 times daily, amlodipine 5 mg daily, and hydrochlorothiazide 12.5 mg daily. Patient instructed she will need to follow-up with PCP in 1-2 days and day care assistant on 10/31/22 at 3:45 PM. Patient instructed on the importance of monitoring blood pressure closely at home and documenting these findings in a daily log/journal to bring with her to next doctor's appointment therefore additional changes can be made to current antihypertensive medication regimen as indicated based upon these findings. Dizziness/lightheadedness, resolved after control of hypertensive urgency. Hospital Course: Patient is a very pleasant 87-year-old female with a past medical history of hypertension. 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 She presented to the emergency department overnight secondary to "feeling exhausted" states that she did not feel like herself and was experiencing some lightheadedness and generalized blurred vision. She reports her dentition should noted that her blood pressure was elevated throughout the day. Patient Underwent full evaluation in the emergency department. CBC, coags, and CMP were completed and were unremarkable with the exception of elevated renal function with BUN 28, creatinine 1.26, GFR of 38. Troponin was negative at 0.014 and proBNP was 2130.. EKG was completed showing normal sinus rhythm at 62 bpm with T-wave inversion in lateral leads aVL which is unchanged when compared to EKG completed 09/17/18 . Chest x-ray completed which was negative for acute cardiopulmonary process. Upon arrival patient found. Hypertensive urgency with blood pressure 214/98, heart rate 70, respiratory rate 18, and SpO2 97% on room air. Patient was admitted under services with consultation to cardiology. Troponins were trended 0.014, 0.015, and less than 0.012. Echocardiogram was completed revealing EF of 45-50% with mild to moderate mitral and tricuspid regurgitation, mild pulmonary hypertension, and mild global decrease in contractility. Patient was evaluated by cardiology stating patient is cleared from cardiac perspective for discharge recommend follow-up outpatient in the office in 2 weeks. After multiple medication changes patient's blood pressure 131/56 at time of discharge. Patient is currently free from any complaints and reports full resolution of previous reports of dizziness/lightheadedness. She is being discharged home on valsartan 160 mg daily, metoprolol 12.5 mg twice daily, hydralazine 50 mg 3 times daily, amlodipine 5 mg daily, and hydrochlorothiazide 12.5 mg daily. Patient instructed she will need to follow-up with PCP in 1-2 days and day care assistant on 10/31/22 at 3:45 PM. Patient instructed on the importance of monitoring blood pressure closely at home and documenting these findings in a daily log/journal to bring with her to next doctor's appointment therefore additional changes can be made to current antihypertensive medication regimen as indicated based upon these findings. Physical exam: Vital signs reviewed and stable. General: Nontoxic, no distress and appears stated age. Derm: Skin warm and dry, normal coloration for ethnicity. Head: Atraumatic, normocephalic and symmetric. Eyes: EOMs intact, no lid lag, and anicteric sclera Mouth: no lip lesions, mucus membranes moist Cardiovascular: regular rate and rhythm with normal S1S2, no murmur, positive posterior tibial pulses bilaterally, and cap refill < 2 seconds. Lungs: Respirations even, regular, and unlabored on room air. Lungs CTA bilaterally, no rhonchi, no rales, no wheezing, and no accessory muscle usage. Abdominal: soft, nontender to palpation, no guarding, no appreciable organomegaly Ext: ROM intact. No gross muscle atrophy, no edema, no contractures Neuro: Speech clear, face symmetrical and CN II-XII grossly intact with no noted focal neuro deficits Psych: Alert and oriented to person, place, time, and situation. Appropriate and pleasant affect. A total of 34 minutes of time were spent preparing this complex discharge summary. Pt was discharged on 10/19/22 at 1:09 PM. Patient was seen independently by Nurse Practitioner. This document was prepared using [email or web address] dictation software. Please allow for errors in community service officer coordinator while rare they do occur. liliam Rios NP rendered care for this patient independently, reviewed the findings and plan as documented in the note above. I did not physically speak with or examine the patient on this date. Patient Condition at Discharge: Stable Plan - Discharge Summary New Discharge Prescriptions: New Valsartan [Diovan] 160 mg PO DAILY 30 Days #30 tab Metoprolol Tartrate [Lopressor] 12.5 mg PO BID 30 Days #60 tab hydrALAZINE HCL [Apresoline] 50 mg PO TID 30 Days #90 tab Atorvastatin [Lipitor] 10 mg PO DAILY 30 Days #30 tab amLODIPine [Norvasc] 5 mg PO DAILY 30 Days #30 tab Continue Ferrous Sulfate [Iron (65 MG Elemental)] 325 mg PO Q48H hydroCHLOROthiazide 12.5 mg PO DAILY Discontinued Valsartan [Diovan] 80 mg PO BID Discharge Medication List Ferrous Sulfate [Iron (65 MG Elemental)] 325 mg PO Q48H 10/18/22 [History] hydroCHLOROthiazide 12.5 mg PO DAILY 10/18/22 [History] Atorvastatin [Lipitor] 10 mg PO DAILY 30 Days #30 tab 10/19/22 [Rx] Metoprolol Tartrate [Lopressor] 12.5 mg PO BID 30 Days #60 tab 10/19/22 [Rx] Valsartan [Diovan] 160 mg PO DAILY 30 Days #30 tab 10/19/22 [Rx] amLODIPine [Norvasc] 5 mg PO DAILY 30 Days #30 tab 10/19/22 [Rx] hydrALAZINE HCL [Apresoline] 50 mg PO TID 30 Days #90 tab 10/19/22 [Rx] Follow up Appointment(s)/Referral(s): Brandyn Sheets MD [STAFF PHYSICIAN] - 10/31/22 3:45 pm Boogie Fagan MD [Primary Care Provider] - 1-2 days Patient Instructions/Handouts: Chronic Hypertension (DC), Hypertensive Crisis (DC) Activity/Diet/Wound Care/Special Instructions: Activity: As tolerated. Take breaks as needed. Diet: Heart healthy and carb consistent diet. Avoid salts, or foods with hidden salts such as canned or boxed foods and frozen dinners. Extra salt makes your heart work harder and traps the fluid in your body for longer. Special Instructions: Take all of your medications as directed and remember to keep all of your doctor's appointments and follow-up as needed. Thank you for allowing us to participate in your care, it was truly a pleasure having you for our patient!!! Discharge Disposition: HOME SELF-CARE
[2022-10-19 14:31] VITALS: BP 131/56; PULSE 71; TEMP 98.2
== END 2022-10-19 15:25 | disposition home or self-care (01) ==
LOC: EC 18:45 → 6NMEDSUR 10-18 01:03
PROVIDERS: ADMIT Internal Medicine; ATTEND Internal Medicine
DX: I16.0 Hypertensive urgency (principal); I12.9 Hypertensive chronic kidney disease with stage 1 through stage 4 chronic kidney disease, or unspecified chronic kidney disease; N18.30 Chronic kidney disease, stage 3 unspecified; I27.20 Pulmonary hypertension, unspecified; I08.1 Rheumatic disorders of both mitral and tricuspid valves; E78.5 Hyperlipidemia, unspecified; I65.29 Occlusion and stenosis of unspecified carotid artery; F41.9 Anxiety disorder, unspecified; Z79.82 Long term (current) use of aspirin; Z79.899 Other long term (current) drug therapy; Z88.8 Allergy status to other drugs, medicaments and biological substances; Z91.040 Latex allergy status; Z86.73 Personal history of transient ischemic attack (TIA), and cerebral infarction without residual deficits; Z90.710 Acquired absence of both cervix and uterus; Z98.51 Tubal ligation status; Z86.79 Personal history of other diseases of the circulatory system; Z87.42 Personal history of other diseases of the female genital tract; Z98.890 Other specified postprocedural states; Z83.3 Family history of diabetes mellitus
CPT/HCPCS: 96372; 96361; 96374; 99285; 36415; 93005; 93306; 83880; 80053; 83605; 83735; 84100; 84484 ×2; 85025; 85610; 85730; 71045; G0378 ×2; J1644

== ENCOUNTER → 2023-10-10 | Outpatient (CLI) | payer MEDICARE, OTHER ==
--- NOTE | 2023-10-10 13:09 | XR ---
EXAMINATION TYPE: XR chest 2V DATE OF EXAM: 10/10/2023 COMPARISON: 10/17/2022 HISTORY: Shortness of breath TECHNIQUE: Frontal and lateral views of the chest are obtained. FINDINGS: Scattered senescent parenchymal changes noted. Hyperinflation compatible with COPD. Biapical scarring . No evidence for infiltrate. No evidence for atelectasis. Heart size is stable. Mediastinal structures are stable and grossly unremarkable. No evidence for hilar prominence. Degenerative changes dorsal spine. IMPRESSION: 1. No evidence for acute pulmonary disease.
== END | disposition home or self-care (01) ==
LOC: RADXRMAIN 12:28
PROVIDERS: ATTEND Family Medicine
DX: R05.3 Chronic cough (principal)
CPT/HCPCS: 71046

== ENCOUNTER → 2024-07-01 | Outpatient (CLI) | payer MEDICARE, OTHER ==
[2024-07-01 13:25] LABS: Appearance,Urine Cloudy (Clear); Bacteria,Urine Moderate /hpf; Bilirubin,Urine Negative (Negative); Blood,Urine Negative (Negative); Color,Urine Light Yellow; Glucose,Urine (UA) Negative (Negative); Ketones,Urine Negative (Negative); Leukocyte Esterase,Urine Large (Negative); Mucus,Urine Rare /hpf; Nitrite,Urine Positive (Negative); PH, Urine 5.5 (5.0-8.0); Protein,Urine Negative (Negative); RBC,Urine 4 /hpf (0-5); Specific Gravity,Urine 1.013 (1.001-1.035); Squamous Epithelial Cell,Urine <1 /hpf (0-4); Urobilinogen,Urine <2.0 mg/dL (<2.0); WBC,Urine 168 /hpf (0-5)
[2024-07-01 18:30] LABS: HCT 36.5 % (37.2-46.3); HGB 11.9 g/dL (12.0-15.0); MCH 30.9 pg (27.0-32.0); MCHC 32.6 g/dL (32.0-37.0); MCV 94.8 FL (80.0-97.0); Mean Platelet Volume 10.9 FL (9.5-12.2); NRBC Per 100 WBC 0 X 10*3/uL (0.00-0.01); Platelet Count 270 X 10*3/uL (140-440); RBC 3.85 X 10*6/uL (4.10-5.20); RDW 13.2 % (11.5-14.5); WBC 9.99 X 10*3/uL (4.50-10.00)
[2024-07-01 18:45] LABS: ALT 18 U/L (8-44); AST 15 U/L (13-35); Albumin 4.4 g/dL (3.8-4.9); Albumin/Globulin Ratio 1.76 Ratio (1.60-3.17); Alkaline Phosphatase 86 U/L (41-126); BUN/Creat Ratio 25.25 Ratio (12.00-20.00); Blood Urea Nitrogen 30.3 mg/dL (9.0-27.0); Calcium 10.1 mg/dL (8.7-10.3); Carbon Dioxide 23.3 mmol/L (21.6-31.8); Chloride 102 mmol/L (96-109); Globulin 2.5 g/dL (1.6-3.3); Glucose 99 mg/dL (70-110); Magnesium 1.8 mg/dL (1.5-2.4); Phosphorus 3.9 mg/dL (2.4-5.1); Potassium 4.6 mmol/L (3.5-5.5); Sodium 137 mmol/L (135-145); Total Bilirubin 0.3 mg/dL (0.3-1.2); Total Protein 6.9 g/dL (6.2-8.2)
== END | disposition home or self-care (01) ==
LOC: LABWHC1 12:38
PROVIDERS: ATTEND Internal Medicine
DX: N18.30 Chronic kidney disease, stage 3 unspecified (principal)
CPT/HCPCS: 36415; 80053; 81001; 83735; 84100; 85027

== ENCOUNTER → 2024-10-09 | Outpatient (CLI) | payer MEDICARE, OTHER ==
--- NOTE | 2024-10-09 15:58 | US ---
EXAMINATION TYPE: US kidneys/renal and bladder DATE OF EXAM: 10/09/2024 COMPARISON: 01/11/14 CLINICAL INDICATION: Female, 89 years old with history of N18.32 CKD STAGE 3; CKD TECHNIQUE: Grayscale imaging of the bilateral kidneys and urinary bladder: FINDINGS: EXAM MEASUREMENTS: Right Kidney: 9.0 x 4.7 x 4.4 cm Left Kidney: 8.5 x 5.0 x 4.1 cm Right Kidney: cystic area in renal pelvis measuring 1.4 x 1.5 x 1.4cm Left Kidney: cortical thinning seen Bladder: limited visualization due to bowel gas and not fully distended Bilateral Jets seen: No There is no evidence for hydronephrosis at this point in time. No nephrolithiasis is seen. No solid masses are identified. The urinary bladder is anechoic. IMPRESSION: Renal cystic changes without evidence for solid mass. Left-sided cortical thinning identified. [facility], , 10/09/2024 3:56 PM
== END | disposition home or self-care (01) ==
LOC: RADUSWWP 15:24
PROVIDERS: ATTEND Internal Medicine Nephrology
DX: N18.32 Chronic kidney disease, stage 3b (principal); N28.1 Cyst of kidney, acquired
CPT/HCPCS: 76770

== ENCOUNTER → 2024-11-04 | Outpatient (CLI) | payer MEDICARE, OTHER ==
--- NOTE | 2024-11-04 12:17 | BD ---
EXAMINATION TYPE: Axial Bone Density DATE OF EXAM: 11/04/2024 CLINICAL HISTORY: 89 years old Female. ICD-10 CODE: Z78.0 ASYMPTOMATIC MENOPAUSAL STATE , Additional History: Height: 62 Weight: 127.8 FRAX RISK QUESTIONS: Alcohol (3 or more units per day): no Family History (Parent hip fracture): no Glucocorticoids (More than 3mos): no (Ex: prednisone, prednisolone, methylprednisolone, dexamethasone, and hydrocortisone). History of Fracture in Adulthood: RT Wrist Secondary Osteoporosis: 1. Type 1 Diabetes: no 2. Hyperthyroidism: no 3. Menopause before 45: no 4. Malnutrition: no 5. Chronic liver disease: no Rheumatoid Arthritis: no Current Tobacco Use: no RISK FACTORS HISTORY OF: Hip Fracture (Right/Left): no Spine Fracture: no History of Wrist Fracture: RT Wrist When: age 50 Surgery to Spine/Hip(right/left)/Wrist (right/left): no MEDICATIONS: Thyroid Medications: no Osteoporosis Medications: no EXAM MEASUREMENTS: Bone mineral densitometry was performed using the [employer] System. Bone mineral density as measured about the Lumbar spine is: ----- L1-L4(G/cm2): 1.302 T Score Values are as follows: ----- L1: -1.2 ----- L2: 0.2 ----- L3: 2.8 ----- L4: 1.7 ----- L1-L4: 1.0 Z Score Values are as follows: ----- L1: 1.1 ----- L2: 2.4 ----- L3: 5.0 ----- L4: 3.9 ----- L1-L4: 3.2 Baseline Study Bone mineral density about the R hip (g/cm2): 0.955 Bone mineral density about the L hip (g/cm2): 0.979 T Score values are as follows: -----R Neck: -0.6 -----L Neck: -0.7 -----R Total: -0.4 -----L Total: -0.2 Z Score values are as follows: -----R Neck: 2.1 -----L Neck: 2.0 -----R Total: 2.2 -----L Total: 2.4 Baseline Study FRAX%s: The graph provided illustrates a 12.2% chance for a major osteoporotic fx and a 2.8% chance f or the hips probability for fx in 10 years time. IMPRESSION: Normal (Values between +1 and -1 indicate normal bone mass). Consider repeating this study in 5 year s or sooner if there is some new clinical indication. NOTE: T-SCORE=SD OF THE YOUNG ADULT MEAN. [facility], , 11/04/2024 12:14 PM
== END | disposition home or self-care (01) ==
LOC: RADBDWWP 09:17
PROVIDERS: ATTEND Internal Medicine
DX: Z78.0 Asymptomatic menopausal state (principal)
CPT/HCPCS: 77080

== ENCOUNTER 2024-11-11 11:41 | Day surgery (SDC) | payer MEDICARE, OTHER ==
[2024-11-09 13:08] VITALS: BMI 23.3
[2024-11-11] MEDS: IV FLUID CONTINUATION 1,000 ML IV ONE (12:45)
[2024-11-11] MEDS: LACTATED RINGERS 1,000 ML IV SCH (12:56)
[2024-11-11 12:58] VITALS: TEMP 97.7
[2024-11-11] MEDS ORDERED: LIDOCAINE 2% (PF) 20 MG/ML 5 ML VIAL ONE (13:19)
[2024-11-11] MEDS ORDERED: PROPOFOL 10 MG/ML 20 ML VIAL IV ONE (13:19)
--- NOTE | 2024-11-11 13:36 | P.PCN ---
Date of Procedure: 11/11/24 Procedure(s) Performed: BRIEF HISTORY: Patient is a 89-year-old, pleasant, white female scheduled for an upper endoscopy as a part evaluation of chronic hoarseness for the last 7 years duration. She does complain of occasional heartburn but no dysphagia or odynophagia.. PROCEDURE PERFORMED: Esophagogastroduodenoscopy with biopsy. PREOPERATIVE DIAGNOSIS: Chronic hoarseness and occasional heartburn. IV sedation per anesthesia. PROCEDURE: After informed consent was obtained, the patient was brought into the endoscopy unit. IV sedation was administered by Anesthesia under continuous monitoring. Initially the Olympus GIF-140 video endoscope was inserted into the mouth. Esophagus intubated without any difficulty. It was gradually advanced into the stomach and duodenum and carefully examined. The bulb and the second part of the duodenum appeared normal. The scope at this time was withdrawn to the stomach, adequately insufflated with air, and upon careful examination, mucosa of the antrum, had patchy areas of erythema consistent with gastritis and biopsies were done from this area. Mucosa of the body, cardia and the fundus appeared normal. The scope was then withdrawn into the esophagus. Small hiatal hernia. The GE junction was located at 39 cm from the incisors. There were linear erosions noted in the distal esophagus consistent with LA grade B reflux esophagitis. Rest of the esophagus appeared normal and the patient tolerated the procedure well. IMPRESSION: 1. Multiple linear erosions of the distal esophagus consistent with LA grade B reflux esophagitis. 2. Small hiatal hernia 3. Mild antral gastritis. RECOMMENDATIONS: The findings of this examination were discussed with the patient as well as her family. Follow-up with the biopsy results. She was advised to start on omeprazole 20 mg daily and follow antireflux measures.. Follow-up in the office in 6 weeks.
[2024-11-11 14:33] VITALS: BP 166/90; PULSE 67; RESP 18
== END 2024-11-11 14:45 | disposition home or self-care (01) ==
LOC: ORWHC2ENDO 11:41
PROVIDERS: ATTEND Internal Medicine Gastroenterology
DX: K29.50 Unspecified chronic gastritis without bleeding (principal); K44.9 Diaphragmatic hernia without obstruction or gangrene; I10 Essential (primary) hypertension; I27.20 Pulmonary hypertension, unspecified; K21.9 Gastro-esophageal reflux disease without esophagitis; Z86.73 Personal history of transient ischemic attack (TIA), and cerebral infarction without residual deficits; Z79.899 Other long term (current) drug therapy; Z91.040 Latex allergy status; Z91.048 Other nonmedicinal substance allergy status; Z88.8 Allergy status to other drugs, medicaments and biological substances; Z90.710 Acquired absence of both cervix and uterus; Z98.51 Tubal ligation status
CPT/HCPCS: 88305; 43239; J2704; J2003